=== PATIENT | female | born 1995 | race Caucasian/White ===

== ENCOUNTER 2024-01-26 14:50 | Outpatient (AMB) | payer BC, SELFPAY ==
--- NOTE | 2024-01-26 15:11 | MHC.PC.OV ---
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 Allergies sulfamethoxazole [From Bactrim] Allergy (Verified 11/27/21 09:03) Rash trimethoprim [From Bactrim] Allergy (Verified 11/27/21 09:03) Rash Medication List - Last Reconciled 01/26/24 by Dania Yen PA-C cetirizine (Zyrtec) 10 mg PO DAILY PRN chlorthalidone 25 mg PO DAILY cyanocobalamin (vitamin B-12) 1,000 mcg PO DAILY escitalopram oxalate 20 mg PO DAILY fluticasone furoate-vilanterol 100-25 mcg/dose (Breo Ellipta) 1 ea inhalation DAILY hydroxyzine HCl 25 mg PO BEDTIME PRN losartan 100 mg PO DAILY potassium chloride ER 20 mEq PO DAILY Tobacco use date assessed: 01/26/24 Dental Screening Did you have a dental visit in the last 12 months?: No Did you have a dental problem in the last 6 months where you did not have access to dental care?: No Was dental information given to patient?: Patient has dentist 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 from [facility]. CV: Blood pressure today in the office is 102/62. She remains on losartan 100 mg, chlorthalidone 25 mg and potassium. She is frustrated with her weight and states that the wegovy was the only thing that was helpful. She tolerated this well. Psych: well controlled on lexapro. No SI/HI. She states that she is frustrated with her weight and that is the main reason for her anxiety and depression. She used to follow with a therapist but found this unhelpful. She reports sleeping well. activities counselor: utd- follows with Kimberley. She is a little bit concerned because for the last 6 months her menses have been irregular. She states it feels like her. It is coming later in later. She follows it on the flow chasity and states that it will tell her to check test regularly despite her not currently being sexually active. She states that when she was living in [place] about 9 months ago she went to the ER there for abdominal pain and they told her that she had a large, right ovarian cyst on CT scan. She has not have a copy of this today. [facility] Medical History (Updated 01/26/24 @ 15:51 by Dania Yen PA-C) Right ovarian cyst Major depression in partial remission Generalized anxiety disorder with panic attacks Irregular menses Severe obesity (BMI 35.0-35.9 with comorbidity) Hypertension, benign Anxiety Depression Asthma GERD (gastroesophageal reflux disease) HTN (hypertension) Surgical History (Updated 01/26/24 @ 15:45 by Dania Yen PA-C) S/P VSD repair Family History (Updated 01/26/24 @ 15:18 by Damaris Andersen CMA) Mother Diabetes Father HTN (hypertension) Social History (Updated 01/26/24 @ 15:17 by Damaris Andersen CMA) Housing: House Patient Tobacco Use Status: Former Tobacco user Years Smoked: High school years e-Cigarette/Vaping Use: Never Used Second Hand Smoke Exposure: No Substance Use Type: Marijuana service: No Current occupational status: employed 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 1. Little interest or pleasure in doing things: several days 2. Feeling down, depressed, or hopeless: several days 3. Trouble falling or staying asleep, or sleeping too much: several days 4. Feeling tired or having little energy: several days 5. Poor appetite or overeating: more than half the days 6. Feeling bad about yourself - or that you are a failure or have let yourself or your family down: more than half the days 7. Trouble concentrating on things, such as reading the newspaper or watching television: not at all 8. Moving or speaking so slowly that other people could have noticed. Or the opposite - being so fidgety or restless that you have been moving around a lot more than usual: not at all 9. Thoughts that you would be better off or of hurting yourself in some way: not at all Total score: 8 Depression Screening Interpretation: Positive Depression Screening Follow-up: Existing condition, In treatment and Follow-up Visit Requested Depression Screening Done: Yes 46317 - PHQ-9 Billing: Yes Source: Developed by Drs. Bhavesh Sandhu, Andree Foreman, Sj Joshi and colleagues, with an educational leeanne from [employer]. Thrive Questionnaire Date Thrive assessed: 01/26/24 I am a: Patient What is your living situation today?: I have a steady place to live Within the past 12 months, did the food you bought not last and you didn't have the money to get more?: Never true Within the past 12 months, did you worry whether your food would run out before you got money to buy more?: Never true Do you have trouble paying for medicines?: No Do you have trouble getting transportation to medical appointments?: No Do you have trouble paying your heating and electricity bill?: No Do you have trouble taking care of your child, family member or friend?: No Do you have trouble with day-to-day activities such as bathing, preparing meals, shopping, managing finances, etc.?: No Are you currently unemployed and looking for a job?: No Are you interested in more education?: No Please select the resources that you would like help with: None Currently or been in a relationship where the following occur: no concerns reported THRIVE Score: 0 AUDIT C Alcohol Use Questionnaire (AUDIT-C) 1. How often do you have a drink containing alcohol?: 2-4 times a month 2. How many drinks containing alcohol do you have on a typical day when you are drinking?: 3 or 4 3. How often do you have six or more drinks on one occasion?: Never Total Score: 3 Score Reviewed/Action Taken: Yes POLY-7 AMB Questionnaire POLY-7 Date POLY - 7 assessed: 01/26/24 Feeling nervous, anxious, or on edge: 1 = Several days Not being able to stop or control worryin = Not at all Worrying too much about different things: 1 = Several days Trouble relaxin = Not at all Being so restless that it is hard to sit still: 0 = Not at all Becoming easily annoyed or irritable: 1 = Several days Feeling afraid as if something awful might happen: 0 = Not at all Total POLY-7 score (0-4 normal; 5-9 mild; 10-14 moderate; 15-21 severe): 3 Source: Developed by Drs. Bhavesh Sandhu, Andree Foreman, Sj Joshi and colleagues, with an educational leeanne from [employer]. POLY-7 Assessment Billing POLY-7 Assessment Tool: POLY-7 Assessment 52859 ACT Questionnaire In the past 4 weeks, how much of the time did your asthma keep you from getting as much done at work, school or at home?: None of the time During the past 4 weeks, how often have you had shortness of breath?: Not at all During the past 4 weeks, how often did your asthma symptoms wake you up at night or earlier than usual in the morning?: Not at all During the past 4 weeks, how often have you had to use your rescue inhaler or nebulizer medication?: Not at all How would you rate your asthma control during the past 4 weeks?: Completely controlled ACT Interpretation: Negative Score: 25 Physical exam (Primary Care) Vital Signs: Last Vital Signs Temp 98.6 F 01/26/24 15:19 Pulse 86 01/26/24 15:19 Resp 14 01/26/24 15:19 BP 102/62 01/26/24 15:19 Pulse Ox 98 01/26/24 15:19 Oxygen Delivery Method Room Air 01/26/24 15:19 BMI result Body Mass Index 35.4 BMI Assessment/Plan discussion: High (wegovy rx) BMI High, discussed plan: lifestyle, weight reduction, dietary, physical activity and other Tobacco/Smoking Status: Tobacco use Status Tobacco use date assessed 01/26/24 01/26/24 15:22 Patient Tobacco Use Status Former Tobacco user 01/26/24 15:22 e-Cigarette/Vaping Use Never Used 01/26/24 15:22 PHQ-9: PHQ-9 Score PHQ-9: Total score 8 01/26/24 15:22 Depression Screening Interpretation: Positive Depression Screening Follow-up: Existing condition, In treatment and Follow-up Visit Requested Thrive Assessment: Date of Thrive Assessment Date Thrive assessed 01/26/24 01/26/24 15:22 Currently or been in a relationship where the following occur: no concerns reported Const Orientation/consciousness: patient oriented x3 HENMT Ears: hearing grossly normal bilaterally Neck Thyroid: Thyroid normal Lymphatic: no lymphadenopathy noted Resp Auscultation: clear to auscultation bilaterally Cardio Rate: regular rate Rhythm: regular rhythm Heart sounds: S1 normal heart sound present and S2 normal heart sound present GI Inspection: Yes normal to inspection Palpation (GI): Soft to palpation and Other GI palpation findings present (nontender, no cva tenderness) Auscultation: normoactive bowel sounds Rectal Exam - Female: deferred Skin General skin exam: no rashes or lesions noted Neuro General: patient oriented x3, gait normal and no focal motor deficits Assessment and Plan Assessment & Plan (1) Hypertension, benign: Code(s): I10 - Essential (primary) hypertension Plan: She has been worked up for secondary causes of hypertension. We will continue chlorthalidone, losartan. Labs ordered today. (2) Severe obesity (BMI 35.0-35.9 with comorbidity): Code(s): E66.01 - Morbid (severe) obesity due to excess calories; Z68.35 - Body mass index [BMI] 35.0-35.9, adult Plan: Referral to weight management placed. We will restart will go away. Discussed risks and benefits and adverse effects of this medication again. I do believe that she will benefit from this as she previously lost 18 lb. (3) Irregular menses: Code(s): N92.6 - Irregular menstruation, unspecified Plan: Advised to follow up with her continuing education director. Labs ordered today. Pelvic ultrasound ordered given the finding on CT from her [place] hospitalization of the right ovarian cyst that was commented to be large. I do not have the record of this. (4) Right ovarian cyst: Code(s): N83.201 - Unspecified ovarian cyst, right side (5) Generalized anxiety disorder with panic attacks: Code(s): F41.1 - Generalized anxiety disorder; F41.0 - Panic disorder [episodic paroxysmal anxiety] Plan: Currently well-controlled with Lexapro. Does not want to follow with a therapist. States that most of her anxiety and depression comes from her weight. (6) Major depression in partial remission: Code(s): F32.4 - Major depressive disorder, single episode, in partial remission Qualifiers: Major depression recurrence: recurrent Qualified Code(s): F33.41 - Major depressive disorder, recurrent, in partial remission Plan: See above. Plan Labs ordered. Follow up in 3 months. Sooner if needed. Patient understands and agrees with the plan Orders: Orders Complete Blood Count Auto Diff Today E66.01 - Morbid (severe) obesity due to excess calories, F32.4 - Major depressive disorder, single episode, in partial remission, F41.0 - Panic disorder [episodic paroxysmal anxiety], F41.1 - Generalized anxiety disorder, I10 - Essential (primary) hypertension, N92.6 - Irregular menstruation, unspecified, Z68.35 - Body mass index [BMI] 35.0-35.9, adult TSH reflex Free T4 Today E66.01 - Morbid (severe) obesity due to excess calories, F32.4 - Major depressive disorder, single episode, in partial remission, F41.0 - Panic disorder [episodic paroxysmal anxiety], F41.1 - Generalized anxiety disorder, I10 - Essential (primary) hypertension, N92.6 - Irregular menstruation, unspecified, Z68.35 - Body mass index [BMI] 35.0-35.9, adult Lipid Panel Today E66.01 - Morbid (severe) obesity due to excess calories, F32.4 - Major depressive disorder, single episode, in partial remission, F41.0 - Panic disorder [episodic paroxysmal anxiety], F41.1 - Generalized anxiety disorder, I10 - Essential (primary) hypertension, N92.6 - Irregular menstruation, unspecified, Z68.35 - Body mass index [BMI] 35.0-35.9, adult US pelvic and transvaginal Today N83.201 - Unspecified ovarian cyst, right side Comprehensive [place]. Panel Fast Today E66.01 - Morbid (severe) obesity due to excess calories, F32.4 - Major depressive disorder, single episode, in partial remission, F41.0 - Panic disorder [episodic paroxysmal anxiety], F41.1 - Generalized anxiety disorder, I10 - Essential (primary) hypertension, N92.6 - Irregular menstruation, unspecified, Z68.35 - Body mass index [BMI] 35.0-35.9, adult Hemoglobin A1c Today E66.01 - Morbid (severe) obesity due to excess calories, I10 - Essential (primary) hypertension, N92.6 - Irregular menstruation, unspecified, Z68.35 - Body mass index [BMI] 35.0-35.9, adult Referrals Medical Weight Management Referral E66.01 - Morbid (severe) obesity due to excess calories, I10 - Essential (primary) hypertension, N92.6 - Irregular menstruation, unspecified, Z68.35 - Body mass index [BMI] 35.0-35.9, adult Medications: New semaglutide (weight loss) ([place]) administer weeks 1 through 4 of therapy 0.25 mg (0.5 mL) subcut QWEEK 2 mL 1RF chlorthalidone 25 mg PO DAILY 90 tabs 3RF Coding Level of Care Code Est Pt Level 4 (88077) Complex EM visit Add On G2211 Diagnoses Hypertension, benign I10 Severe obesity (BMI 35.0-35.9 with comorbidity) E66.01; Z68.35 Irregular menses N92.6 Right ovarian cyst N83.201 Generalized anxiety disorder with panic attacks F41.1; F41.0 Recurrent major depressive disorder, in partial remission F33.41 Major depression recurrence: recurrent Additional Codes POLY-7 Assessment Billing - POLY-7 Assessment Tool: POLY-7 Assessment 60487 ([id number])
[2024-01-26 15:19] VITALS: BP 102/62; PULSE 86; RESP 14; TEMP 37; O2SAT 98; BMI 35.4
== END 2024-01-26 15:41 | disposition home or self-care (01) ==
PROVIDERS: PCP Physician Assistant; Visit Provider Physician Assistant
DX: I10 Essential (primary) hypertension (principal); E66.01 Morbid (severe) obesity due to excess calories; F33.41 Major depressive disorder, recurrent, in partial remission; Z68.35 Body mass index [BMI] 35.0-35.9, adult; N92.6 Irregular menstruation, unspecified; N83.201 Unspecified ovarian cyst, right side; F41.1 Generalized anxiety disorder; F41.0 Panic disorder [episodic paroxysmal anxiety]
CPT/HCPCS: 99214; G2211

== ENCOUNTER 2024-02-02 16:04 | Outpatient (REF) | payer BC, SELFPAY ==
--- NOTE | ~2024-02-02 | US_ITS ---
EXAMINATION: US PELVIS CLINICAL INFORMATION: Right ovarian cyst. Last menstrual period a month ago. COMPARISON: None available. TECHNIQUE: Ultrasound of the pelvis is performed using both transabdominal and transvaginal transducers along with Doppler. Limited visualization due to bowel gas and body habitus. Transvaginal imaging is performed due to inadequate visualization transabdominally. FINDINGS: The uterus is anteverted and measures 7.9 x 2.5 x 4.2 cm. 0.5 x 0.4 x 0.5 cm fibroid. Endometrial thickness is 9 mm. Small amount of fluid within the cervix. No significant free fluid. Bilateral ovaries are unremarkable. Right ovary measures 2.5 x 1.4 x 2.1 cm, volume 3.8 mL. Left ovary measures 3.0 x 2.3 x 1.8 cm, volume 6.5 mL. US/US pelvic and transvaginal IMPRESSION: 1. Endometrium appears echogenic with thickness of 9 mm. 2. Small 0.5 cm uterine mass characteristic of a fibroid. 3. Unremarkable bilateral ovaries. Limited visualization due to bowel gas and body habitus.
== END 2024-02-02 16:05 | disposition home or self-care (01) ==
LOC: HO.US 16:04
PROVIDERS: PCP Physician Assistant; Visit Provider Physician Assistant
DX: N83.201 Unspecified ovarian cyst, right side (principal)
CPT/HCPCS: 76830; 76856

== ENCOUNTER 2024-04-27 10:53 | Outpatient (AMB) | payer BC, SELFPAY ==
--- NOTE | 2024-04-27 11:08 | MHC.PC.OV ---
Vital Signs 04/27/24 11:09 Height 5 ft Weight 163 lb 6 oz BMI 31.9 BP 102/62 Blood Pressure Location Lt brachial Position Sitting Respiration 14 Pulse 75 Pulse Source Pulse Oximeter Pulse Oximetry (%) 98 Oxygen Delivery Method Room Air Intake Visit Reasons: F/U Intake Note: Follow up Is last menstrual period known: No Allergies sulfamethoxazole [From Bactrim] Allergy (Verified 04/27/24 11:09) Rash trimethoprim [From Bactrim] Allergy (Verified 04/27/24 11:09) Rash Medication List - Last Reconciled 04/27/24 by Dania Yen PA-C cetirizine (Zyrtec) 10 mg PO DAILY PRN chlorthalidone 25 mg PO DAILY cyanocobalamin (vitamin B-12) 1,000 mcg PO DAILY escitalopram oxalate 20 mg PO DAILY fluticasone propion-salmeterol 250-50 mcg/dose (Wixela Inhub) 1 inh inhalation BID 30 days hydroxyzine HCl 25 mg PO BEDTIME PRN losartan 50 mg PO DAILY ondansetron HCl 4 mg PO Q8H PRN potassium chloride ER 20 mEq PO DAILY semaglutide (weight loss) (Wegovy) 2.4 mg (0.75 mL) subcut QWEEK Tobacco use date assessed: 01/26/24 HPI F/U HPI Details Patient is a 29-year-old female with a significant past medical history of anxiety, depression, hypertension, asthma and obesity presenting today for a followup. CV: Blood pressure today in the office is 102/62. She remains on losartan 100 mg, chlorthalidone 25 mg and potassium. General: She is frustrated with her weight and states that the wegovy was the only thing that was helpful. She tolerated this well. She is down 20 lbs with this. Psych: well controlled on lexapro. No SI/HI. She states that she is frustrated with her weight and that is the main reason for her anxiety and depression. She used to follow with a therapist but found this unhelpful. She reports sleeping well. 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 [facility] Medical History (Updated 03/08/24 @ 16:10 by Dania Yen PA-C) Right ovarian cyst Major depression in partial remission Generalized anxiety disorder with panic attacks Irregular menses Severe obesity (BMI 35.0-35.9 with comorbidity) Hypertension, benign Anxiety Depression Asthma GERD (gastroesophageal reflux disease) HTN (hypertension) Surgical History (Updated 01/26/24 @ 15:45 by Dania Yen PA-C) S/P VSD repair Family History (Updated 01/26/24 @ 15:18 by Damaris Andersen CMA) Mother Diabetes Father HTN (hypertension) Social History (Updated 01/26/24 @ 15:17 by Damaris Andersen CMA) Housing: House Patient Tobacco Use Status: Former Tobacco user Years Smoked: High school years e-Cigarette/Vaping Use: Never Used Second Hand Smoke Exposure: No Substance Use Type: Marijuana service: No Current occupational status: employed 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 Bhavesh Sandhu, Andree Foreman, Sj Joshi and colleagues, with an educational leeanne from [employer]. Physical exam (Primary Care) Vital Signs: Last Vital Signs Pulse 75 04/27/24 11:09 Resp 14 04/27/24 11:09 BP 102/62 04/27/24 11:09 Pulse Ox 98 04/27/24 11:09 Oxygen Delivery Method Room Air 04/27/24 11:09 BMI result Body Mass Index 31.9 BMI Assessment/Plan discussion: High (on wegovy) BMI High, discussed plan: lifestyle, weight reduction, dietary and physical activity Tobacco/Smoking Status: Tobacco use Status Tobacco use date assessed 01/26/24 04/27/24 11:11 Patient Tobacco Use Status Former Tobacco user 04/27/24 11:11 e-Cigarette/Vaping Use Never Used 04/27/24 11:11 Thrive Assessment: Date of Thrive Assessment Date Thrive assessed 01/26/24 04/27/24 11:11 Const Orientation/consciousness: patient oriented x3 HENMT Ears: hearing grossly normal bilaterally Neck Thyroid: Thyroid normal Lymphatic: no lymphadenopathy noted Resp Auscultation: clear to auscultation bilaterally Cardio Rate: regular rate Rhythm: regular rhythm Heart sounds: S1 normal heart sound present and S2 normal heart sound present Skin General skin exam: no rashes or lesions noted Neuro General: patient oriented x3, gait normal and no focal motor deficits Assessment and Plan Assessment & Plan (1) Hypertension, benign: Code(s): I10 - Essential (primary) hypertension Plan: will reduce losartan to 50 mg. (2) Major depression in partial remission: Code(s): F32.4 - Major depressive disorder, single episode, in partial remission Qualifiers: Major depression recurrence: recurrent Qualified Code(s): F33.41 - Major depressive disorder, recurrent, in partial remission Plan: continue lexapro (3) Severe obesity (BMI 35.0-35.9 with comorbidity): Code(s): E66.01 - Morbid (severe) obesity due to excess calories; Z68.35 - Body mass index [BMI] 35.0-35.9, adult Plan: tolerating wegovy and down 20 lbs. continue current plan get labs done today Medications: New losartan 50 mg PO DAILY 90 tabs 3RF Coding Level of Care Code Est Pt Level 4 (18197) Complex EM visit Add On G2211 Diagnoses Hypertension, benign I10 Recurrent major depressive disorder, in partial remission F33.41 Major depression recurrence: recurrent Severe obesity (BMI 35.0-35.9 with comorbidity) E66.01; Z68.35
[2024-04-27 11:09] VITALS: BP 102/62; PULSE 75; RESP 14; O2SAT 98; BMI 31.9
== END 2024-04-27 11:35 | disposition home or self-care (01) ==
PROVIDERS: PCP Physician Assistant; Visit Provider Physician Assistant
DX: I10 Essential (primary) hypertension (principal); F33.41 Major depressive disorder, recurrent, in partial remission; E66.01 Morbid (severe) obesity due to excess calories; Z68.35 Body mass index [BMI] 35.0-35.9, adult
CPT/HCPCS: 99214

== ENCOUNTER 2024-04-27 11:42 | Outpatient (REF) | payer BC, SELFPAY ==
[2024-04-27 14:20] LABS: MANUAL DIFF FLAG NO
[2024-04-27 14:24] LABS: Basophils Absolute Auto 0.1 X10*3/uL (0.0-0.2); Basophils Percent Auto 0.6 % (0-2); Eosinophils Absolute Auto 0.2 X10*3/uL (0.0-0.4); Eosinophils Percent Auto 2.2 % (0-4); Hematocrit 39.6 % (37.0-47.0); Hemoglobin 13.5 g/dl (12.0-16.0); Imm Gran Abs Auto 0.03 X10*3/uL (0.00-0.03); Imm Gran Pct Auto 0.3 % (0.0-0.4); Lymphocytes Percent Auto 29.2 % (20-40); Mean Corpuscular HGB Conc 34.1 g/dl (31.0-35.0); Mean Corpuscular Hemoglobin 29.7 pg (27.0-33.0); Mean Corpuscular Volume 87.2 fL (80.0-98.0); Mean Platelet Volume 10.6 fL (9.4-12.3); Monocytes Absolute Auto 0.8 X10*3/uL (0.1-1.2); Monocytes Percent Auto 7.2 % (2-11); Neutrophils Absolute Auto 6.3 x10*3/uL (2.0-8.3); Neutrophils Percent Auto 60.5 % (45-73); Platelet Count 437 X10*3/uL (160-400); Red Blood Count 4.54 X10*6/uL (4.20-5.50); Red Cell Distribution Width 13.3 % (11.0-16.0); White Blood Count 10.4 X10*3/uL (4.8-10.8)
[2024-04-27 14:38] LABS: Estimated Average Glucose 100 mg/dL; Hemoglobin A1c % 5.1 % (<6.0)
[2024-04-27 14:50] LABS: Alanine Aminotransferase 13 U/L (0-31); Albumin Level 4.5 g/dL (3.5-5.0); Alkaline Phosphatase 40 U/L (39-117); Anion Gap 13 (12-20); Aspartate Amino Transferase 14 U/L (5-31); Bilirubin Total 0.5 mg/dL (0.0-1.0); Blood Urea Nitrogen 16 mg/dL (9-16); Carbon Dioxide 24 mmol/L (22-29); Chloride 104 mmol/L (96-108); Cholesterol 170 mg/dL (<200); Estimated Glomerular Filt Rate > 60; Glucose Fasting 85 mg/dL (60-99); HDL Cholesterol 36 mg/dL (>40); LDL Cholesterol Calculated 103 mg/dL (<100); Potassium 3.5 mmol/L (3.3-5.1); Sodium 137 mmol/L (135-145); Total Protein 7.3 g/dL (6.5-8.0); Triglycerides 157 mg/dL (<150)
== END 2024-04-27 11:43 | disposition home or self-care (01) ==
LOC: HO.WFDLDS 11:42
PROVIDERS: Visit Provider Physician Assistant
DX: I10 Essential (primary) hypertension (principal); E66.01 Morbid (severe) obesity due to excess calories; Z68.35 Body mass index [BMI] 35.0-35.9, adult; N92.6 Irregular menstruation, unspecified; F41.1 Generalized anxiety disorder; F41.0 Panic disorder [episodic paroxysmal anxiety]; F32.4 Major depressive disorder, single episode, in partial remission; Z13.1 Encounter for screening for diabetes mellitus
CPT/HCPCS: 36415; 80053; 80061; 83036; 84443; 85025

== ENCOUNTER 2024-11-01 15:24 | Outpatient (AMB) | payer BC, SELFPAY ==
--- OUTSIDE RECORDS SUMMARY | 2024-11-01 15:26 | XMS_ITS | Data Portability ---
Author Organization [place] - [facility],, BRITTANIE ROSE MD Address [address] [address] Assessment No assessment recorded. Plan of Treatment Reminders Order Date Submit Date Provider Last Modified By Organization Details Last Modified Time Details Appointments None recorded. Lab pap test, thinprep, cervical 2019 020 [facility], Cytopathology Service, [address] [place] [address], [address], 0 07:49:17 chlamydia sp, culture, unspecifi ed specimen 2019 020 [facility], Cytopathology [facility], [address] [place] [address], [address], 0 07:49:17 NG DNA, PCR, genital 2019 020 [facility], Cytopathology Service, [address] [place] [address], [address], 0 07:49:18 pap test, thinprep, cervical 2018 019 [facility], Cytopathology Service, [address] [place] [address], [address], 9 16:01:42 chlamydia sp, culture, unspecifi ed specimen 2018 019 [facility], Cytopathology Service, [address] [place] [address], [address], 9 16:02:04 NG DNA, PCR, genital 2018 019 [facility], [facility] Service, [address] [place], [address], 9 16:02:21 urinalysi s, dipstick 2017 018 [facility] In-Office Order, Internal Use Only DO Not Attach Compendium DO Not Attach Compendium, Do Not Delete/merge, 149[address] 8 07:44:39 culture, urine 2017 018 [place], [address] [place], [address], 8 13:43:41 unlisted lab - chlamydia / GC DNA W rflx 2017 018 [facility] [employer], [address] [place] [address], [address], 8 07:44:40 herpes simplex, culture, unspecifi ed specimen - Source of culture= Clitoris 2017 018 [place], [address] [place], [address], 8 11:41:45 pap test, thinprep, cervical 2017 018 [facility], Cytopathology Service, [address] [place], [address], 8 14:06:32 chlamydia sp, culture, unspecifi ed specimen 2017 018 [facility], Cytopathology Service, [address] [place], [address], 8 07:39:54 NG DNA, PCR, genital 2017 018 [facility], Cytopathology Service, [address] [place], [address], 8 07:39:54 Referral None recorded. Procedures None recorded. Surgeries None recorded. Imaging None recorded. Medication Orders Linda 0.35 mg tablet 2017 018 [id number], [address] [facility], [place], [address], 9 15:18:21 Patient TargetsNo targets recorded. Patient Instructions Encounter Date Encounter Id Patient Instructions Last Modified By Organization Details Last Modified Time 02/04/2018 [id number] She is here for annual exam, is doing well. She was switched to a different antihypertensive recently, her BP today is 150/85. She is taking the Linda OCP due to her hypertension. She has a history of LSIL, had paps in 2014 ASCUS, 2016 LSIL, 2017 negative, and colpo LSIL in 03/2016. She has a known cardiac murmur, she had a breast reduction in September and so she had to see a director talent acquisition pre op, They said the murmur was fine. She has had the same partner for 6 years, is considering marriage. We reviewed the interaction of the OCP with antibiotics. We discussed the need to use a condom during antibiotic use and also for a minimum of three weeks following the use of antibiotics. We discused interactions with some herbal and OTC meds, such as [facility] Possible side effects, and the stated risk of one in 10,000 to develop a blood clot/ DVT/PE were also discussed. Safe sex was stressed. All questions answered, rx to be called in to pharmacy. She appears to be doing well. She is advised to get 1500 mg of calcium daily into her diet and supplements combined. We discussed the benefits of adequate vitamin D supplementation to at least 400 units daily, daily aerobic exercise of 30 minutes, and stress reduction. Monthly self breast exam was taught, and stressed, and is advised to call if she discovers any new mass in the breast. Seat belt use for herself and passengers advised. The significant health benefits of becoming and remainig fit, with an optimal BMI, were also discussed. We discussed the potential reduction in chronic discomfort, the diminished risks of hypertension, diabetes, and heart disease with the proper weight management, and improved mobility as she ages. Strategies to reach and maintain her target weight wer discussed in detail, all questions answered. aleksanrda Not available 02/04/2018 09:08:54 04/08/2018 [id number] urinary tract infection in women information aleksandra Not available 04/08/2018 15:11:46 She is here priscilla use she got back together with her old partner 2 days ago and the next morning, yesterday, she noted a very severe pain at the top of her vulva. She notes that she also has some dysuria since then. Today the pain is moderately improved and definitely not worse. They did have oral sex. On exam, the surface of the clitoris is abraded and red, has a small scab on it. the damage does not extend to the cabrera or lateral tissues, just the glans itself. More than 50% of the surface has been denuded. There are no lesions or blisters otherwise. No adjacent erythema or induration. She appears to have had a traumatic surface injury of the clitoral glans, now healing. Ways ot keep it from getting infected discussed. Call if any problem. this should be self limiting. She is advised to let him know to be more careful and asware of hte sensitive nature fo the tisuse. [facility] HSV culture, though doubt. [facility] genprobe of cervix for new partner. U/A has trace leuk, check culture to rule out UTI. All questions answered. 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 She has not bee nsexually active in the 4 weeks. She stopped her Linda a year ago, they were not using control and she didn't get . She is not sure if she has infertility or not. BP is 148/102 today. She went to urgent care for pink eye last Wednesday, her diastolic was 115. She used to take amlodipine 10 mg tabs until March, but she stopped it because it made her foot numb. Note from 2018: She is here for annual exam, is doing well. She was switched to a different antihypertensive recently, her BP today is 150/85. She is taking the Linda OCP due to her hypertension. She has a history of LSIL, had paps in 2014 ASCUS, 2016 LSIL, 2017 negative, and colpo LSIL in 03/2016. She has a known cardiac murmur, she had a breast reduction in September and so she had to see a director talent acquisition pre op, They said the murmur was fine. She has had the same partner for 6 years, is considering marriage. She has mild hidradenitis of inner thighs, ways to improve that discussed. She is giong to try to lose weight, cut back on salt, improve her BP, and will see her PCP about a new antihypertensive. She will call after hr BP is improved, to get a refill on Linda, does not believe she will be sexually active for a while. We discussed that she had chalamydia in 2012, but that does not guarantee tubal infertility, and she needs to use adequate control until she desires fertility. She appears to be doing well. She is advised to get 1500 mg of calcium daily into her diet and supplements combined. We discussed the benefits of adequate vitamin D supplementation to at least 400 units daily, daily aerobic exercise of 30 minutes, and stress reduction. Monthly self breast exam was taught, and stressed, and is advised to call if she discovers any new mass in the breast. Seat belt use for herself and passengers advised. The significant health benefits of becoming and remainig fit, with an optimal BMI, were also discussed. We discussed the potential reduction in chronic discomfort, the diminished risks of hypertension, diabetes, and heart disease with the proper weight management, and improved mobility as she ages. Strategies to reach and maintain her target weight wer discussed in detail, all questions answered. Not available 06/23/2019 15:58:50 06/27/2020 [id number] learning about healthy weight Not available 06/27/2020 15:42:30 She is here for annual exam, had stopped her antihypertensive last year. She was started on an antihypertensive by her PCP a few months ago, she notes, and her BP was higher than it is today, at that time. She as not been back there to recheck, though. BP 157/95 today. Menses are regular. 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 She has not had another partner since then. Note from 2019: She is here for annual exam, she broke up with her usp boyfriend a month ago, and he already has a new partner. She has not bee nsexually active in the 4 weeks. She stopped her Linda a year ago, they were not using control and she didn't get . She is not sure if she has infertility or not. BP is 148/102 today. She went to urgent care for pink eye last Wednesday, her diastolic was 115. She used to take amlodipine 10 mg tabs until March, but she stopped it because it made her foot numb. She appears to be doing well. Valeria is advised to contact her PCP after taking two weeks of home BP tests, she has a BP cuff at home. Call if she wants to restart progestin only control. She is advised to get 1500 mg of calcium daily into her diet and supplements combined. There is a health benefit with adequate vitamin D supplementation to at least 400 units daily, daily aerobic exercise of 30 minutes, and stress reduction. Monthly self breast exam was taught, and stressed, and is advised to call if she discovers any new mass in the breast. Not available 06/27/2020 15:43:30 Reason for Referral None Reported. Results Created Date Observation Date Name Description Value Unit Range Abnormal Flag Note LastModifiedBy Organization Detail LastModifiedTime 02/05/20 18 02/04/2018 gener al5ca se [id number] RESUL TS OF GEN-P ROBE APTIM A COMBO 2 ASSAY Chlam ydia: NEGYEN serna e: NEGAT DEWEY GUERRERO M.D., Patho logis t (Case elect tabitha orellana marie [place] 02 09 2018) [facility] INFOR MATIO N: Z12.4 , Z01.4 19 SOURC E: ThinP rep Pap for CT/GC Gross Descr iptio n: ThinP rep Vial Recei cynthia. Physi AMY Mixon N /#[phone] [id number] [phone] Not Available [facility], Cytopathology Service [address] [place], [address], 02/09/2018 09:36:35 02/05/20 18 02/04/2018 pap, LB [id number] ThinP rep Pap, Image d: NEGAT DEWEY FOR SQUAM OUS INTRA EPITH ELIAL LESIO N AND MALIG JC . Ronny Hunt hers, CT( CP) (Case elect tabitha bejaranolilian marie d 02 09 2018) ADEQU ACY: Satis facto ry. Endoc ervic al/tr ansfo rmati on zone compo nent prese nt. SOURC E: ThinP rep Pap HPV IF ASCUS , Cervi mary kate, Image d: CLINI [facility] INFOR MATIO N: HPV If Diagn osis of ASCUS . Z12.4 , Z01.4 19 Not Available [facility], Cytopathology Service [address] [place], [address], 02/09/2018 14:06:32 04/08/20 18 04/08/2018 cultu re, urine comments [facility] [address] [facility] [address] [phone] SOUR E: URINE ,MEHRAN N CATCH ; Not Available [facility] [address] [place], [address], 04/09/2018 13:43:41 04/08/20 18 04/09/2018 cultu re, urine urine culture [facility] [address] [place] [address] [phone] COLLE CTION TIME: 2017 2:30: 00 PM -04:0 0 URINE CULTU RE No growt h F Not Available [facility] [address] [place], [address], 04/09/2018 13:43:41 04/08/20 18 04/08/2018 CT, DNA, qual, PCR, unspe cifie d speci men comments [facility] [address] [facility] [address] [phone] [facility] [address] [place] [address], [address], 04/10/2018 10:07:17 04/08/20 18 04/08/2018 CT, DNA, qual, PCR, unspe cifie d speci men chlamydia DNA swab NEGATI VE negati ve Not Available [facility] [address] [place] [address], [address], 04/10/2018 10:07:17 04/08/20 18 04/08/2018 NG, DNA, qual, PCR, unspe cifie d speci men comments [facility] [address] [facility] [address] [phone] [facility] [address] [place] [address], [address], 04/10/2018 10:07:18 04/08/20 18 04/08/2018 NG, DNA, qual, PCR, unspe cifie d speci men GC DNA swab NEGATI VE negati ve Not Available [facility] [address] [place] [address], [address], 04/10/2018 10:07:18 04/08/20 18 04/08/2018 herpe s simpl ex, cultu re, unspe cifie d speci men herpes culture source Clitor is Not Available [facility] [address] [place] [address], [address], 04/16/2018 11:41:42 04/08/20 18 04/08/2018 herpe s simpl ex, cultu re, unspe cifie d speci men herpes culture interpretati on No Growth no growth This metho d utili zes stand arley tube cultu re metho ds with monoc lonal antib allegra stain ing of CPE-p ositi ve cells . This proce dure can detec t and diffe renti ate herpe s type 1 and herpe s type 2. Other virus es prese nt in the speci men will not be ident ified . A negat dewey resul t does not precl ude viral infec tion. The viabi lity of viral agent s can be degra ded if speci mens are impro perly colle cted or store d. The numbe r of viabl e virus parti cles may be below the detec tion thres hold. Test perfo rmed at [facility] , [address], [place] [address] [phone] Dajuan Ochoa MD - Medic al Direc tor Not Available [facility] [address] [facility], [place], [address], 04/16/2018 11:41:42 04/08/20 18 04/08/2018 urina lysis , dipst ick GLU Negati ve Not Available In-Office Order Internal Use Only DO Not Attach Compendium DO Not Attach Compendium, Do Not Delete/merge, 04/08/2018 14:37:36 04/08/20 18 04/08/2018 urina lysis , dipst ick MARGARITA Negati ve Not Available In-Office Order Internal Use Only DO Not Attach Compendium DO Not Attach Compendium, Do Not Delete/merge, 04/08/2018 14:37:36 04/08/20 18 04/08/2018 urina lysis , dipst ick KET Negati ve Not Available In-Office Order Internal Use Only DO Not Attach Compendium DO Not Attach Compendium, Do Not Delete/merge, 04/08/2018 14:37:36 04/08/20 18 04/08/2018 urina lysis , dipst ick SG 1.020 Not Available In-Office Order Internal Use Only DO Not Attach Compendium DO Not Attach Compendium, Do Not Delete/merge, 04/08/2018 14:37:36 04/08/20 18 04/08/2018 urina lysis , dipst ick BLO Negati ve Not Available In-Office Order Internal Use Only DO Not Attach Compendium DO Not Attach Compendium, Do Not Delete/merge, 04/08/2018 14:37:36 04/08/20 18 04/08/2018 urina lysis , dipst ick pH 6.0 Not Available In-Office Order Internal Use Only DO Not Attach Compendium DO Not Attach Compendium, Do Not Delete/merge, 04/08/2018 14:37:36 04/08/20 18 04/08/2018 urina lysis , dipst ick PRO Negati ve Not Available In-Office Order Internal Use Only DO Not Attach Compendium DO Not Attach Compendium, Do Not Delete/merge, 04/08/2018 14:37:36 04/08/20 18 04/08/2018 urina lysis , dipst ick URO 0.2 E.U. / dl Not Available In-Office Order Internal Use Only DO Not Attach Compendium DO Not Attach Compendium, Do Not Delete/merge, 04/08/2018 14:37:36 04/08/20 18 04/08/2018 urina lysis , dipst ick NIT negati ve Not Available In-Office Order Internal Use Only DO Not Attach Compendium DO Not Attach Compendium, Do Not Delete/merge, 04/08/2018 14:37:36 04/08/20 18 04/08/2018 urina lysis , dipst ick AYO Trace Not Available In-Office Order Internal Use Only DO Not Attach Compendium DO Not Attach Compendium, Do Not Delete/merge, 04/08/2018 14:37:36 06/23/20 19 06/23/2019 gener al5ca se [id number] RESUL TS OF APTIM A COMBO 2 ASSAY : Chlam ydia: NEGAT DEWEY N. yvonne serna e: NEGAT DEWEY Compl eted on 06-27 JAMES GUERRERO M.D. , Patho logis t (Case elect tabitha carleelilian marie d 06 27 2019) [facility] INFOR MATIO N: Z12.4 SOURC E: ThinP rep Pap for CT/GC Gross Descr iptio n: ThinP rep Vial Recei cynthia. Physi allison NICOLE LLSELMA/ [phone] Not Available [facility], Cytopathology Service [address] [place] [address], [place], [address], 06/27/2019 17:02:27 06/23/20 19 06/23/2019 pap, LB [id number] ThinP rep Pap, Image d: NEGAT DEWEY FOR SQUAM OUS INTRA EPITH ELIAL LESIO N AND MALIG JC . Nahed Zhu , CT( CP) (Case elect tabitha orellana marie d 06 30 2019) ADEQU ACY: Satis facto ry Endoc ervic al/tr ansfo rmati on zone compo nent prese nt. SOURC E: ThinP rep Pap HPV IF ASCUS , Cervi mary kate, Image d CL[facility]I [facility] INFOR MATIO N: HPV If Diagn osis of ASCUS . Z12.4 , LPS = NEG Not Available [facility], Cytopathology Service [address] [place], [address], 06/30/2019 13:31:34 06/27/20 20 06/27/2020 gener al5ca se [id number] RESUL TS OF APTIM A COMBO 2 ASSAY : Chlam ydia: NEGAT DEWEY N. gonor rhoea e: NEGAT DEWEY Compl eted on 06-28 JAMES GUERRERO M.D. , Patho logis t (Case elect tabitha orellana marie d 06 28 2020) CL[facility] INFOR MATIO N: Lps 06/23 neg, z12.4 , z01.4 19, z11.3 SOURC E: ThinP rep Pap for CT/GC Gross Descr iptio n: ThinP rep Vial Recei cynthia. Physi kaileens AMY SCOTT/ [phone] Not Available [facility], Cytopathology Service [address] [place], [address], 06/28/2020 16:46:10 06/27/20 20 06/27/2020 pap, LB [id number] ThinP rep Pap, Image d: NEGAT DEWEY FOR SQUAM OUS INTRA EPITH ELIAL LESIO N AND MALIG JC . React dewey cellu lilly lee. Shauna Rivas a , CT( CP) (Case Scree nhan 07 01 2020) Nenita Sarkar M.D. , Patho logis t (Case elect tabitha orellana marie d 07 02 2020) ADEQU ACY: Satis facto ry Endoc ervic al/tr ansfo rmati on zone compo nent prese nt. SOURC E: ThinP rep Pap HPV IF ASCUS , Cervi mary kate, Image d CLINI [facility] INFOR MATIO N: HPV If Diagn osis of ASCUS . lps 06/23 neg, z12.4 , z11.3 , z01.4 19 Not Available [facility], Cytopathology Service [address] [place], [address], 07/03/2020 15:21:16 Result Notes None recorded. Problems Name Problem SNOMED Code Status Onset Date Resolution Date Notes Provider Name and Address Organization Details Recorded Time Cytologic finding 981211974 Active She has a history of LSIL, had paps in 2014 ASCUS, 2016 LSIL, 2016 negative, and colpo LSIL in 03/2016. Brittanie Rose MD [address], [place], [address], [place] [facility], 8 09:09:10 Dysmenorrh ea 425314543 Active Brittanie Rose MD [address], [place], [address], [place] [facility], 6 15:32:53 Chlamydial infection 601438588 Active 2012 She had a positive chlmaydia culture in 07/26, treated and repeat tests negative. Brittanie Rose MD [address], [place], [address], [place] [facility], 6 15:12:38 Hypertensi ve disorder 06215815 Active Brittanie Rose MD [address], [place], [address], [place] [facility], 6 15:32:53 History of dysplasia of cervix 501513847 Active 2017 She has a history of LSIL, had paps in 2014 ASCUS, 2016 LSIL, 2017 negative, and colpo LSIL in 03/2016. Brittanie Rose MD [address], [place], [address], [place] [facility], 8 09:09:41 Specialize d medical examinatio n Active of breasts and vulva, most notably Brittanie Rose MD [address], [place], [address], [place] [facility], 6 15:12:38 Menorrhagi a 748186158 Active Brittanie Rose MD [address], [place], [address], [place] [facility], 6 15:12:38 Generalize d vitiligo 136918442 Active Brittanie Rose MD [address], [place], [address], [place] [facility], 6 15:12:38 Cervical intraepith elial neoplasia grade 1 191486626 Active 2014 She has a history of LSIL, had paps in 2014 ASCUS, 2016 LSIL, 2017 negative, and colpo LSIL in 03/2016. Brittanie Rose MD [address], [place], [address], [place] [facility], 8 09:09:22 Problem Notes None recorded. Procedures Surgical History Date Name Laterality Status Provider Name and Address Organization Details Recorded Time 8 Other completed Mikayla Mcintyre [place] [facility], 02/04/2018 08:39:08 6 Colposcopy completed Brittanie Rose MD [address], [place], [address], [place] [facility], 03/13/2016 09:46:43 5 Colposcopy completed Brittanie Rose MD [address], [place], [address], [place] [facility], 02/11/2015 09:45:30 5 Colposcopy completed Mikayla Mcintyre [place] Lombardi in [facility], 03/13/2016 08:36:12 5 Colposcopy completed Brittanie Rose MD [address], [place], [address], [place] [facility], 10/08/2014 13:55:16 8 Unlisted px cardiac surgery completed Brittanie Rose MD [address], [place], [address], [place] [facility], 08/02/2013 11:40:52 Imaging Results None recorded. Procedure Notes None recorded. Medical Equipment None Reported. Allergies Allergen ID Allergen Name Allergen Category Reaction Reaction Severity Criticality Documentation Date Start Date Code Code System Note Provider Name and Address Organization Details Recorded Time 41307 Bactrim medicatio n rash Not available Not available 08/02/2013 46224 9 RxNorm no idea was young ASHISH Dmaian in [facility], 3 11:07:59 75261 hydrochlo rothiazid e medicatio n rash Not available Not available 05/08/2015 5487 RxNorm ASHISH Damian in [facility], 5 10:07:25 47765 Substance with sulfonami de structure and antibacte rial mechanism of action (substanc e) medicatio n rash Not available Not available 08/02/2015 74245 8003 SNOMED ASHISH Damian in [facility], 5 08:08:44 Medications Name Sig Start Date Stop Date Status Note LastModified by Organization Details LastModified Time amoxicillin 500 mg capsule 04/08 completed Not Available Not Available Not Available prednisone 10 mg tablet TAKE 40 MG BY MOUTH DAILY X 5 DAYS, 30 MG X 5 DAYS, 20 MG DAILY X 5 DAYS, THEN 10 MG DAILY X 5 DAYS 06/16 completed Not Available Not Available Not Available albuterol sulfate 2.5 mg/3 mL (0.083 %) solution for nebulizatio n 06/16 completed Not Available Not Available Not Available azithromyci n 250 mg tablet 03/13 completed Not Available Not Available Not Available ibuprofen 800 mg tablet 06/16 completed Not Available Not Available Not Available ofloxacin 0.3 % eye drops active Not Available Not Available Not Available metoprolol succinate ER 50 mg tablet,exte nded release 24 hr 02/04 completed Not Available Not Available Not Available citalopram 10 mg tablet active Not Available Not Available Not Available Claritin 10 mg tablet Take 1 tablet every day by oral route. active Not Available Not Available No t Available prednisone 20 mg tablet 02/04 completed Not Available Not Available Not Available fluoxetine 10 mg tablet active Not Available Not Available Not Available penicillin V potassium 500 mg tablet 02/04 completed Not Available Not Available Not Available amlodipine 2.5 mg tablet active Not Available Not Available Not Available chlorthalid one 25 mg tablet TAKE 1 TABLET BY MOUTH EVERY DAY active Not Available Not Available No t Available amlodipine 5 mg tablet 02/04 completed Not Available Not Available Not Available oxycodone-a cetaminophe n 5 mg-325 mg tablet 02/04 completed Not Available Not Available Not Available amlodipine 10 mg tablet 06/16 completed Not Available Not Available Not Available hydrocortis one 1 % topical cream APPLY ON SKIN LESIONS TWICE DAILY FOR 2 WEEKS 06/16 completed Not Available Not Available Not Available erythromyci n 5 mg/gram (0.5 %) eye ointment 06/16 completed Not Available Not Available Not Available oseltamivir 75 mg capsule TAKE 1 CAPSULE BY MOUTH EVERY 12 HOURS FOR 5 DAYS 06/27 completed Not Available Not Available Not Available triamcinolo ne acetonide 0.1 % topical ointment 04/08 completed Not Available Not Available Not Available fluoxetine 10 mg capsule Take 1 capsule every day by oral route. active Not Available Not Available No t Available montelukast 10 mg tablet TAKE 1 TABLET BY MOUTH EVERY DAY IN THE EVENING active Not Available Not Available No t Available clindamycin 2 % vaginal cream INSERT 1 APPLICATO RFUL VAGINALLY DAILY X 7 DAYS active Not Available Not Available No t Available lisinopril 5 mg tablet 03/13 completed Not Available Not Available Not Available hydrochloro thiazide 25 mg tablet active Not Available Not Available No t Available mupirocin 2 % topical ointment 02/04 completed Not Available Not Available Not Available metoprolol succinate ER 25 mg tablet,exte nded release 24 hr 02/04 completed Not Available Not Available Not Available medroxyprog esterone 150 mg/mL intramuscul ar suspension Inject 1 mL every 3 months by intramusc ular route as directed for 360 days. 02/04 completed Not Available Not Available Not Available amoxicillin 875 mg-potassiu m clavulanate 125 mg tablet 06/16 completed Not Available Not Available Not Available azithromyci n 500 mg tablet Take 2 tablets every day by oral route for 1 day. 2012 active 3 day Z pack Not Available Not Available Not Available Linda 0.35 mg tablet TAKE 1 TABLET BY MOUTH EVERY DAY 06/16 completed Not Available Not Available Not Available 10/02 () 1 mg-20 mcg tablet active Not Available Not Available Not Available 10/02 () 1 mg-20 mcg (21)/75 mg (7) tablet active Not Available Not Available N ot Available () 1.5 mg-30 mcg (21)/75 mg (7) tablet Take 1 tablet every day by oral route. 2012 active Not Available Not Available Not Avai lable nitrofurant oin monohydrate /macrocryst als 100 mg capsule Take 1 capsule twice a day by oral route for 7 days. 02/04 completed Not Available Not Available Not Available Flovent HFA 110 mcg/actuati on aerosol inhaler active Not Available Not Available Not Available () active Not Available Not Available Not Available ProAir HFA 90 mcg/actuati on aerosol inhaler INHALE 2 PUFFS Q 4-6 HOURS NEEDED active Not Available Not Available No t Available Symbicort 160 mcg-4.5 mcg/actuati on HFA aerosol inhaler INHALE 2 PUFFS BY MOUTH TWICE A DAY active Not Available Not Available No t Available Mucus Relief ER 600 mg tablet, extended release TAKE 1 TABLET BY MOUTH TWICE A DAY 02/04 completed Not Available Not Available Not Available Alyacen 1/35 (28) 1 mg-35 mcg tablet TAKE 1 TABLET BY MOUTH EVERY DAY active Not Available Not Available No t Available fluticasone 113 mcg-salmete rol 14 mcg/actuati on breath activated powdr active Not Available Not Available Not Available Vitals Date Recorded Body height Heart rate Body mass index (BMI) Body weight Systolic blood pressure Diastolic blood pressure Provider Name and Address Organization Details Last Updated DateTime 8 154.94 cm 85 /min 31.5 kg/m2 04480.4 9 g 150 mm[Hg] 85 mm[Hg] Mikayla Lombardi in [facility], 8 08:41:11 Date Recorded Body height Body mass index (BMI) Body weight Heart rate Systolic blood pressure Diastolic blood pressure Provider Name and Address Organization Details Last Updated DateTime 8 154.94 cm 32.3 kg/m2 09300.3 g 89 /min 166 mm[Hg] 100 mm[Hg] Jaelyn Lombardi in [facility], 8 14:34:32 Date Recorded Body weight Body mass index (BMI) Body height Heart rate Systolic blood pressure Diastolic blood pressure Provider Name and Address Organization Details Last Updated DateTime 9 65325.5 2 g 32.5 kg/m2 153.04 cm 88 /min 166 mm[Hg] 99 mm[Hg] Jaelyn Lombardi in [facility], 9 15:21:20 Date Recorded Body height Body mass index (BMI) Body weight Heart rate Systolic blood pressure Diastolic blood pressure Provider Name and Address Organization Details Last Updated DateTime 9 153.04 cm 32.3 kg/m2 00256.9 3 g 95 /min 148 mm[Hg] 102 mm[Hg] Mikayla Lombardi in [facility], 9 15:29:12 Date Recorded Body height Body mass index (BMI) Body weight Body temperature Heart rate Systolic blood pressure Diastolic blood pressure Provider Name and Address Organization Details Last Updated DateTime 0 153.04 cm 34.7 kg/m2 77557.4 7 g 97.7 [degF] 86 /min 157 mm[Hg] 95 mm[Hg] Yanni Castro [place] - [facility], 0 15:07:36 Social History Question Answer Notes LastModified by Organizat ion Details LastModified Time Tobacco Smoking Status Never Smoker Not Available [facility] 07/16/2020 03:19:42 What Is Your Level Of Alcohol Consumption? Occasional [id number] Information not available 07/16/2020 What Is Your Level Of Caffeine Consumption? Heavy [id number] Information not available 07/16/2020 What Type Of Diet Are You Following? REGULAR [id number] Information not available 07/16/2020 Which Illicit Or Recreational Drugs Have You Used? No [id number] Information not available 07/16/2020 Do You Reside In Or Have You Traveled To An Area Where Ebola Virus Transmission Is Active? No [id number] Information not available 07/16/2020 Do You Or Have You Ever Used E-cigarettes Or Vape? 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 30 Information not available 07/02/2016 High Number Of Sexual Partners No Information not available 03/13/2016 To Which Gender Do You Self-identify? Female Information not available 03/13/2016 Marital Status Single Informatio n not available 08/02/2013 What Was The Date Of Your Most Recent Tobacco Screening? 06/27/2020 [id number] Information not available 07/16/2020 Are You Sexually Active? Yes Not Really Been Over A Month [id number] Information not available 07/16/2020 Do You Or Have You Ever Used Smokeless Tobacco? Never Used Smokeless Tobacco [id number] Information not available 07/16/2020 How Much Tobacco Do You Smoke? No [id number] Information not available 07/16/2020 General Stress Level Low mgagne6 Information not available 06/27/2020 How Many Years Have You Smoked Tobacco? 0 [id number] Information not available 07/16/2020 Have You Recently (within The Last 12 Weeks, Or During A Current ) Traveled To Or Lived In A Zika-affected Area? No Information not available 03/13/2016 Sex: Unknown Functional Status Question Answer Note LastModified by Organization D etails LastModified Time What is your exercise level? Moderate [id number] Information not available 07/16/2020 Mental Status None recorded. Family History Nothing Reported Notes:adopted Medical History Condition Response Anesthesia complications N High Blood Pressure Y Candidate for MyRisk panel N Autoimmune Condition N Thyroid Problems N Kidney or Bladder Problems N GI Problems N Lung Disease N Depression N Defects or Inherited Disease N History of Ovarian Cancer N Anemia N History of Breast Cancer N SUZY exposure N BRCA testing in past N Osteopenia N Psychiatric Illness N Anxiety Disorder Y Diabetes N Arthritis N Headaches or Migraines N Infertility N Asthma Y History of Cancer N Endometriosis N Hepatitis N Heart Disease N Hypertension Y Osteoporosis N Gynecological History Statement/Question Response Dysmenorrhea N Flow Light Date of LMP 05/28/2020 Menses Monthly N Colposcopy 02/11/2015 Current Control Method BCPs Age at First Child 1 Obstetrics History GPAL:G 0 P 0 0 0 0 Immunizations Vaccine Type Date Status Note Provider Nam e and Address Organization Details Recorded Time HPV, unspecified formulation 09/13/2010 completed Jaelyn meadows MA - [facility], 08/02/2013 11:07:59 Past Encounters Encounter ID Performer Location Encounter Start Date Encounter Closed Date Diagnosis/Indication Diagnosis SNOMED-CT Code Diagnosis ICD10 Code Diagnosis Note [id number] MD BRITTANIE Ashton MD [address] [place] [address], [address] [place] [address] 08/02/2013 10:51:03 08/02/2013 12:08:11 Specialized medical examination [id number] Venereal d isease screening 121825820 Menorrhagia [id number] Jaelyn ROSE MD [address] [facility], [address] [place] [address] 08/24/2013 15:04:02 08/25/2013 10:14:35 Chlamydial infection 694125000 Cervical intraepithelial neoplasia grade 1 718750194 [id number] Jaelyn ROSE MD [address] [facility],[address] [place] [address] 10/02/2014 14:41:19 10/02/2014 15:40:00 Specialized medical examination 57022862 Venereal d isease screening [id number] Mikayla Justinmoise BRITTANIE ROSE MD [address] [facility],[place] [address] 10/08/2014 12:51:35 10/08/2014 15:19:15 Cytologic finding [id number] BRITTANIE ROSE MD [address] [facility] [place] [address] 02/11/2015 09:03:29 02/11/2015 10:15:14 Cytologic finding 358381405 Venereal d isease screening [id number] Leonard ROSE MD [address] [facility] [address] 02/13/2015 10:38:20 02/13/2015 11:46:17 Dysmenorrhea [id number] Jaelyn ROSE MD [address] [facility] [address] 05/08/2015 09:57:07 05/08/2015 11:24:16 Dysmenorrhea [id number] MD BRITTANIE Ashton MD [address] [facility] [address] 08/02/2015 07:58:16 08/02/2015 09:42:16 Dysmenorrhea 757351424 N94.4 [id number] MD BRITTANIE Ashton MD [address] [facility] [address] 10/02/2015 08:00:47 10/02/2015 11:19:13 Dysmenorrhea 809019224 N94.4 Specialize d medical examination 87669770 Z01.419 Venereal d isease screening 554952869 Z11.3 [id number] MD BRITTANIE Ashton MD [address] [place] [address] 10/25/2015 13:28:37 10/25/2015 16:03:47 Dysmenorrhea 407180231 N94.4 [id number] MD BRITTANIE Ashton MD [address] [place], [place] [address] [address] 01/17/2016 13:10:13 01/20/2016 08:10:20 Cervical intraepithelial neoplasia grade 1 786411445 N87.0 Hypertensive disorder 38 184506 I10 Dysmenorrhea 514647055 N 94.4 [id number] MD BRITTANIE Ashton MD [address] [place] [address] [address] 03/13/2016 08:19:46 03/13/2016 13:01:41 Cytologic finding [id number] R87.612 [id number] MD BRITTANIE Ashton MD [address] [place] [address], [place] [address] 04/08/2016 10:29:52 04/08/2016 11:56:34 Dysmenorrhea 900200830 N94.4 [id number] MD BRITTANIE Ashton MD [address] [place] [address] [address] 07/02/2016 09:19:56 07/02/2016 10:29:36 Dysmenorrhea 916388000 N94.4 [id number] MD BRITTANIE Ashton MD [address] [place] [address] [address] 09/21/2016 09:58:44 09/21/2016 11:21:29 Acute lower urinary tract infection 581025909 R30.0 Dysfunctio nal uterine bleeding 66329558 N93.8 [id number] MD BRITTANIE Ashton MD [address] [place] [address] [address] 09/29/2016 13:36:30 09/29/2016 15:36:27 Specialized medical examination 91132767 Z01.419 Venereal d isease screening 526706599 Z11.3 Dysmenorrhea 293376397 N 94.4 [id number] MD BRITTANIE Ashton MD [address] [place] [address],[address] [place] [address] 12/16/2016 11:29:49 12/16/2016 12:07:16 Dysmenorrhea 963985057 N94.4 Hypertensive disorder 38 618758 I10 Menorrhagia 179281924 N9 2.0 [id number] MD BRITTANIE Ashton MD [address] [place] [address],[address] [place] [address] 02/04/2018 08:27:32 02/04/2018 13:05:35 Specialized medical examination 71511403 Z01.419 Venereal d isease screening 479594626 Z11.3 Dysmenorrhea 475400942 N 94.4 History of dysplasia of cervix 324464292 Z87.410 [id number] MD BRITTANIE Ashton MD [address] [place] [address],[place] [address] 04/08/2018 14:16:55 04/11/2018 08:29:18 Acute lower urinary tract infection 485527160 R30.0 Venereal d isease screening 987306091 Z11.3 [id number] MD BRITTANIE Ashton MD [address] [place] [address],[place] [address] 06/16/2019 15:09:50 06/16/2019 15:43:25 [id number] MD BRITTANIE Ashton MD [address] [place] [address],[place] [address] 06/23/2019 15:01:14 06/23/2019 16:02:26 Specialized medical examination 97240305 Z01.419 Venereal d isease screening 182976395 Z11.3 Hypertensive disorder 38 727352 I10 [id number] MD BRITTANIE Ashton MD [address] [place] [address],[place] [address] 06/27/2020 14:56:43 06/27/2020 15:57:46 Specialized medical examination 01613612 Z01.419 Venereal d isease screening 440811232 Z11.3 Health Concerns Section Related Observation LastModified by Organization Detai ls LastModified Time None Recorded Concern Status LastModified by Organization Details LastModified Time None Recorded Advance Directives Directive None Recorded Payers Encounter Date Sequence Insurance Name Policy Number Policy Smith Covered Member ID Smith Member ID Guarantor Name 02/04/2018 1 [place] [id number] Martinez Mooreci [id number] Mikayla Mooreci 04/08/2018 1 [place] [id number] Martinez Fucci [id number] Mikayla Fucci 06/16/2019 1 [place] [id number] Martinez Fucci [id number] Mikayla Fucci 06/23/2019 1 [place] [id number] Martinez Fucci [id number] Mikayla Shepherd 06/27/2020 1 *SELF PAY* Ashish Shepherd Notes Date Note Type Note Provider Name and Address Organization Details Recorded Time 02/04/2018 text/html She is here for annual exam, is doing well. She was switched to a different antihypertensive recently, her BP today is 150/85. She is taking the Linda OCP due to her hypertension. Brittanie Rose MD [address] [facility],[address], [place], [address], [place] - [facility], 02/04/2018 09:10:14 04/08/2018 text/html She is here priscilla use she got back together with her old partner 2 days ago and the next morning, yesterday, she noted a very severe pain at the top of her vulva. She notes that she also has some dysuria since then. Today the pain is moderately improved and definitely not worse. They did have oral sex. Brittanie Rose MD [address] [facility],[address], [place], [address], [place] - [facility], 04/08/2018 16:04:38 06/23/2019 text/html She is here for annual exam, she broke up with her usp boyfriend a month ago, and he already has a new partner. She has not bee nsexually active in the 4 weeks. She stopped her Linda a year ago, they were not using control and she didn't get . She is not sure if she has infertility or not. BP is 148/102 today. She went to urgent care for pink eye last Wednesday, her diastolic was 115. She used to take amlodipine 10 mg tabs until March, but she stopped it because it made her foot numb. Note from 2018: She is here for annual exam, is doing well. She was switched to a different antihypertensive recently, her BP today is 150/85. She is taking the Linda OCP due to her hypertension. She has a history of LSIL, had paps in 2014 ASCUS, 2016 LSIL, 2017 negative, and colpo LSIL in 03/2016. She has a known cardiac murmur, she had a breast reduction in September and so she had to see a director talent acquisition pre op, They said the murmur was fine. She has had the same partner for 6 years, is considering marriage. Brittanie Rose MD [address] [facility],[address], [place], [address], [place] - [facility], 06/23/2019 15:59:21 06/27/2020 text/html She is here for annual exam, had stopped her antihypertensive last year.She was started on an antihypertensive by her PCP a few months ago, she notes, and her BP was higher than it is today, at that time. She as not been back there to recheck, though. BP 157/95 today.Menses are regular. 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 She has not had another partner since then. ___ Note from 2019: She is here for annual exam, she broke up with her intermodal dispatcher boyfriend a month ago, and he already has a new partner. She has not bee nsexually active in the 4 weeks. She stopped her Linda a year ago, they were not using control and she didn't get . She is not sure if she has infertility or not. BP is 148/102 today. She went to urgent care for pink eye last Wednesday, her diastolic was 115. She used to take amlodipine 10 mg tabs until March, but she stopped it because it made her foot numb. Brittanie Rose MD [address] [facility],[address], [place], [address], [place] - [facility], 06/27/2020 15:43:54 OBGyn Episode No OBEpisode recorded.
--- OUTSIDE RECORDS SUMMARY | 2024-11-01 15:26 | XMS_ITS | Encounter Summary ---
Author Organization [facility], Address [address] [place] [address] Phone Care Team Providers Care Financial Services Auditor Name Role Phone Dania Yen PA-C Primary Care Provider + Encounter Details Date Type Department Care Team (Late st Contact Info) Description 10/16/2021 Documentation Only [facility], [address] [place] [place] [address] Nahed Collazo MD [address] [place] [address] Social History Tobacco Use Types Packs/Day Years Used Date Smoking Tobacco: Never Assessed Comments Unknown Sex and Gender Information Value Date Recorded Sex Assigned at Female 04/12/2023 10:23 AM EDT Legal Sex Female 3:39 PM EST Gender Identity Female 04/12/2023 10:23 AM EDT Sexual Orientation Straight 04/12/2023 10 :23 AM EDT documented as of this encounter Plan of Treatment Not on file documented as of this encounter Visit Diagnoses Not on filedocumented in this encounter Care Teams Financial Services Auditor Relationship Specialty Start Date End Date Dania Yen PA-C [address] [place] [address] PCP - General Physician Computer Forensic Examiner 10/16/21 documented as of this encounter
--- OUTSIDE RECORDS SUMMARY | 2024-11-01 15:26 | XMS_ITS | Clinical Summary ---
Author Organization Patient Business Ser [facility] Address [address] [place] [address] Care Team Providers Care Construction Project Coordinator Name Role Phone Kari Abbicarmelina Primary Care Provider [phone] Allergies Active Allergy Reactions Criticality Noted Date Comments Hydrochlorothiazide Rash Medium 05/26/2021 Sulfa (Sulfonamide Antibiotics) Rash Medium 05/14 Sulfamethoxazole-Trimethoprim Rash Medium 2019 Medications budesonide-form oteroL (SYMBICORT) 160-4.5 mcg/actuation inhaler Inhale 2 Puffs into the lungs 2 times daily. Active albuterol HFA (PROAIR HFA ; PROVENTIL HFA ; VENTOLIN HFA) 90 mcg/actuation inhaler Inhale 2 Puffs into the lungs every 4 hours as needed. Active chlorthalidone (HYGROTON) 25 mg tablet Take 1 Tab by mouth daily. 12/05/2020 Active cyanocobalamin (VITAMIN B-12) 1,000 mcg tablet Take 1 Tablet by mouth daily. 03/03/2024 Active escitalopram (LEXAPRO) 20 mg tablet 04/30/2024 Active fluticasone furoate (Arnuity Ellipta) 200 mcg/actuation blister with device inhaler INHALE 1 PUFF EVERY DAY DIRECTED. 03/09/2024 Active fluticasone propionate (FLONASE) 50 mcg/actuation nasal spray 2 Sprays by Nasal route daily for 30 days. 12/05/2020 Active losartan (COZAAR) 50 mg tablet 04/27/2024 Active nystatin-triamc inolone (MYCOLOG II) ointment Apply a thin layer to affected area twice daily x 2 weeks, then daily. 05/03/2024 Active ondansetron (ZOFRAN) 4 mg tablet TAKE 1 TABLET BY MOUTH EVERY 8 HOURS NEEDED FOR NAUSEA AND VOMITING. 03/09/2024 Active Active Problems Problem Noted Date Diagnosed Date Hypertension 10/25/2024 Asthma, moderate persistent 10/25/2024 Vulvar itching 06/24/2021 Overview (10/25/2024): Last Assessment & Plan: I counseled Mikayla that both vitiligo and lichen sclerosus can cause itching. It is not 100% clear from her exam which she has in the labial area. She may have both. I suspect the interlabial sulci may be lichen sclerosus. I explained the importance of knowing the difference as LS is more often associated with increased risk of cancer and need for life long treatment with a topical steroid at some interval. I suggested a biopsy to help distinguish between the two, but explained that now all biopsies are diagnostic. She voiced understanding and agreed. Vulvar Biopsy Reason for biopsy: Encounter Diagnosis Name Primary? ? Vulvar itching Yes The patient was consented for vulvar biopsy. Risks reviewed including bleeding, infection, and hematoma formation. She was placed in dorsal lithotomy position. The area of planned biopsy in the left interlabial sulcus was prepped with betadine and infiltrated with a total of 1 cc of 0.5% Marcaine. A 3 mm punch biopsy was taken and harvested with forceps and Iris scissors. Hemostasis was obtained with pressure and silver nitrate. Zinc oxide was applied. The patient tolerated the procedure well. Verbal and written instructions were provided. JESSICA SCHWARTZ MD Immunizations Name Administration Dates Next Due DTaP (Infanrix) 6wks to less than 7yo ,08/25/1995,1994,07/03,1994 [id number] (Pentacel) 2mo to less than 5yo 06/04/1995,1994,1994,05/05 HPV, Quadrivalent 11/26/2008,07/24/2008,04/26/20 08 Hepatitis B Pediatric (Enger ix B; Recombivax HB) to less than 20 yo 1994,1994,1994 IPV Inactivated polio (Ipol) 6wks and older 04/08/1999,08/25/1995,1994,05/05 MMR, measles mumps and rubel la Live (Priorix; M-M-R II) 12mo and older 04/08/1999,06/04/1995 Measles 03/03/2017 Meningococcal MCV4P 05/06/2007 Mumps 03/03/2017 Rubella 03/03/2017 Tdap Tetanus diptheria acell ular pertussis (Boostrix; Adacel) 7yo and older 04/29/2009 Varicella live (Varivax) 12m o and older 03/03/2017,04/29/2009,03/07/1995 Surgical History Surgery Date Site/Laterality Comments CARDIAC SURGERY PROCEDURE: HISTORICAL HEART SURGERY(ASD,VSD,VALVES); COMMENT: VSD 1998 BREAST REDUCTION 09/2017 PROCEDURE: MA BREAST REDUCTION Medical History Medical History Date Comments Asthma, moderate persistent DX:A sthma, moderate persistent Environmental allergies 10/18/2019 DX:Envir onmental allergies Hypertension DX:Hypertension S/P VSD repair DX:S/P VSD repai r Vitiligo DX:Vitiligo Family History Medical History Relation Name Comments Colon polyps Father Diabetes Mother Colon cancer Neg Hx Ovarian cancer Neg Hx Pancreatic cancer Neg Hx Uterine cancer Neg Hx Relation Name Status Comments Father Alive Mother Alive Social History Tobacco Use Types Packs/Day Years Used Date Smoking Tobacco: Never Smokeless Tobacco: Never Alcohol Use Standard Drinks/Week Comments Yes 0 (1 standard drink = 0.6 oz pur e alcohol) Comments Unknown Sex and Gender Information Value Date Recorded Sex Assigned at Not on file Legal Sex Female 12:56 PM EDT Gender Identity Not on file Sexual Orientation Not on file Obstetrics History Last Filed Vital Signs Vital Sign Reading Time Taken Comments Blood Pressure 110/76 05/03/2024 9:08 AM EDT Pulse 83 05/03/2024 9:08 AM EDT Temperature - - Respiratory Rate - - Oxygen Saturation - - Inhaled Oxygen Concentration - - Weight 73.9 kg (163 lb) 05/03/2024 9:08 AM EDT Height 152.4 cm (5') 05/03/2024 9:08 AM EDT Body Mass Index 31.83 05/03/2024 9:08 AM EDT Plan of Treatment Upcoming Encounters Date Type Department Care Team (Late st Contact Info) Description 11/07/2024 11:00 AM EST Office Visit Obstetrics and Gynecology - [address] [place] [place] [id number] Fracisco Tang CNM [address] [place] [address] Health Maintenance Due Date Last Done Comments Pneumococcal Vaccine: Pediatrics (0 to 5 Years) and At-Risk Patients (6 to 64 Years) (1 of 2 - PCV) 2013 DTaP,Tdap,and Td Vaccines (7 - Td or Tdap) 04/29/2019 04/29/2009, 02/05/1999, 08/25/1995, Additional history exists Depression Screening 12/05/2020 Hepatitis C Screening 12/05/2020 Social Influencers of Health Screening 12/05/2020 Hypertension/CHF/CAD Annual BMP Blood Test 08/27/2022 12/05/2020 COVID-19 Vaccine ( season) 2024 Influenza Vaccine (#1) 2024 Cholesterol Screening (Lipid Panel) 12/05/2025 12/05/2020 Cervical Cancer Screening: HPV 05/03/2029 05/03/2024 Hepatitis B Vaccines Completed 1994, 1994, 1994 HIB Vaccines Completed 06/04/1995, 08/14, 1994, Additional history exists IPV Vaccines Completed 04/08/1999, 08/13, 06/04/1995, Additional history exists MMR Vaccines Completed 04/08/1999, 06/04/1995 Meningococcal ACWY Vaccine Aged Out 05/06/2007 N o longer eligible based on patient's age to complete this topic HPV Vaccines Completed 11/26/2008, 07/14, 04/26/2008 Varicella Vaccines Completed 03/03/2017, 0 04/29/2009, 03/07/1995 HIV Screening Completed 12/05/2020 Hepatitis A Vaccines Aged Out No long er eligible based on patient's age to complete this topic Meningococcal B Vacine Aged Out No lo nger eligible based on patient's age to complete this topic RSV Immunization Patients Under 20 months Aged Out No longer eligible based on patient's age to complete this topic Procedures Procedure Name Priority Date/Time Associated Diagnosis Comments HPV Routine 05/03/2024 HIV SCREENING Routine 12/05/2020 ANNUAL BMP BLOOD TEST Routine 12/05/2020 LIPID PANEL Routine 12/05/2020 from Last 3 Months or Most Recently Relevant to Health Maintenance Results * Cervical Cancer Screening: HPV (05/03/2024) Pathologist [facility] Cervical Cancer Screening: HPV Negativie abstracted [facility] Provider HEALTH MAINTENANCE Final Result * Annual BMP Blood Test (12/05/2020) Pathologist [facility] Annual BMP Blood Test Abstracted [facility] Provider HEALTH MAINTENANCE Final Result * HIV Screening (12/05/2020) [facility] HIV Screening Abstracted [facility] Provider HEALTH MAINTENANCE Final Result * (ABNORMAL) Lipid panel (12/05/2020) [facility] LDL/HDL Ratio 4 0 - 4 Triglycerides 154(A) 0 - 150 mg/dL Cholesterol 177 0 - 200 mg/dL HDL 40 >=40 mg/dL LDL Cholesterol 107(A) 0 - 100 mg/dL Blood Venous blood specimen / Unknown [facility] Provider LAB BLOOD ORDERABLES Hilary l Result from Last 3 Months or Most Recently Relevant to Health Maintenance Care Teams Construction Project Coordinator Relationship Specialty Start Date End Date Mickey Pierce DO PCP - General Internal Medicine 01/23/22
--- OUTSIDE RECORDS SUMMARY | 2024-11-01 15:26 | XMS_ITS | Clinical Summary ---
Author Organization [facility] Address [address] [place] [address] Phone Care Team Providers Care Pad Extractor Tender Name Role Phone Dania Yen PA-C Primary Care Provider + Allergies Active Allergy Reactions Criticality Noted Date Comments Hydrochlorothiazide Rash Low 03/31/2023 Sulfa Antibiotics Rash Low 03/31/2023 Sulfamethoxazole-Trimethoprim Rash Low 2022 Medications Fluticasone-Sa lmeterol 113-14 MCG/ACT aerosol powder fluticasone 113 mcg-salmeterol 14 mcg/actuation breath activated powdr Active fluticasone HFA (Flovent HFA) 110 MCG/ACT inhaler Flovent HFA 110 mcg/actuation aerosol inhaler Active chlorthalidone 25 MG tablet chlorthalidone 25 mg tablet Active cyanocobalamin (VITAMIN B-12) 1000 MCG tablet Take 1,000 mcg by mouth 1 (one) time each day 3 Active Symbicort 160-4.5 MCG/ACT inhaler INHALE 2 PUFFS BY MOUTH TWICE A DAY DIRECTED 3 Active escitalopram (Lexapro) 20 MG tablet 3 Active hydrOXYzine (ATARAX) 25 MG tablet 3 Active Semaglutide-We ight Management (Wegovy) 1 MG/0.5ML solution auto-injector 3 Active losartan (Cozaar) 25 MG tablet Take 1 tablet (25 mg total) by mouth 1 (one) time each day 30 tablet 11 3 Active Active Problems Problem Noted Date Diagnosed Date Specialized medical examination 03/31/2023 Menorrhagia 03/31/2023 Hypertensive disorder 03/31/2023 Generalized vitiligo 03/31/2023 Dysmenorrhea 03/31/2023 Cytologic finding 03/31/2023 History of dysplasia of cervix 02/04/2018 Cervical intraepithelial neoplasia grade 1 09/13 Chlamydial infection 07/14/2013 Immunizations Name Administration Dates Next Due HPV, Unspecified 09/13/2010 Social History Tobacco Use Types Packs/Day Years Used Date Smoking Tobacco: Never Assessed Tobacco Cessation:Counseling Given: No Comments Unknown Sex and Gender Information Value Date Recorded Sex Assigned at Female 04/12/2023 10:23 AM EDT Legal Sex Female 3:39 PM EST Gender Identity Female 04/12/2023 10:23 AM EDT Sexual Orientation Straight 04/12/2023 10 :23 AM EDT Last Filed Vital Signs Vital Sign Reading Time Taken Comments Blood Pressure 148/70 07/21/2023 2:38 PM EST Pulse 80 07/21/2023 2:38 PM EST Temperature - - Respiratory Rate - - Oxygen Saturation 97% 07/21/2023 2:38 PM EST Inhaled Oxygen Concentration - - Weight 78.5 kg (173 lb) 07/21/2023 2:38 PM EST Height - - Body Mass Index - - Plan of Treatment Health Maintenance Due Date Last Done Comments Pneumococcal Vaccine: Pediat rics (0 to 5 Years) and At-Risk Patients (6 to 64 Years) (1 of 2 - PCV) 2000 Influenza Vaccine (#1) 2024 Hepatitis B Vaccine Completed 1994, 1994, 1994 [facility] [id number] [facility] Care Teams Pad Extractor Tender Relationship Specialty Start Date End Date Dania Yen PA-C [facility] [place] [address] PCP - General Physician Binding Dyer 10/16/21
--- NOTE | 2024-11-01 15:29 | A.OFFPC_ITS ---
Vital Signs 11/01/24 15:42 Height 5 ft Weight 161 lb BMI 31.4 BP 116/72 Blood Pressure Location Rt brachial Position Sitting Respiration 12 Pulse 83 Pulse Source Pulse Oximeter Pulse Oximetry (%) 99 Oxygen Delivery Method Room Air Intake Visit Reasons: annual Intake Note: Physical Packing Inspector Required: No Allergies sulfamethoxazole [From Bactrim] Allergy (Verified 11/01/24 15:30) Rash trimethoprim [From Bactrim] Allergy (Verified 11/01/24 15:30) Rash Medication List - Last Reconciled 11/01/24 by Dania Yen PA-C albuterol sulfate 90 mcg/actuation 2 puffs inhalation Q4-6H PRN cetirizine (Zyrtec) 10 mg PO DAILY PRN chlorthalidone 25 mg PO DAILY cyanocobalamin (vitamin B-12) 1,000 mcg PO DAILY escitalopram oxalate 20 mg PO DAILY fluticasone propion-salmeterol 250-50 mcg/dose 1 inh inhalation BID 30 days hydroxyzine HCl 25 mg PO BEDTIME PRN losartan 50 mg PO DAILY ondansetron HCl 4 mg PO Q8H PRN semaglutide (weight loss) (Wegovy) 2.4 mg (0.75 mL) subcut QWEEK Tobacco use date assessed: 11/01/24 HPI annual HPI Details Patient is a 29-year-old female with a significant past medical history of anxiety, depression, hypertension, asthma and obesity presenting today for a physical exam CV: Blood pressure today in the office is 116/72. She remains on losartan 50 mg, chlorthalidone 25 mg and potassium. General: She is frustrated with her weight and states that the wegovy was the only thing that was helpful. She tolerated this well. She is down 20 lbs with this. Psych: well controlled on lexapro. No SI/HI. She states that she is frustrated with her weight and that is the main reason for her anxiety and depression. She used to follow with a therapist but found this unhelpful. She reports sleeping well. Derm: Would like to see Dermatology for cystic acne. She would also like to see Allergy and immunology to be worked up for any food sensitivities. 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[facility] Medical History (Updated 11/01/24 @ 16:15 by Dania Yen PA-C) Right ovarian cyst Major depression in partial remission Generalized anxiety disorder with panic attacks Irregular menses Severe obesity (BMI 35.0-35.9 with comorbidity) Hypertension, benign Anxiety Depression Asthma GERD (gastroesophageal reflux disease) HTN (hypertension) Surgical History S/P VSD repair Family History Mother Diabetes Father HTN (hypertension) Social History (Updated 11/01/24 @ 15:46 by Damaris Andersen CMA) Housing: House Alcohol intake: current Patient Tobacco Use Status: Former Tobacco user Years Smoked: High school years e-Cigarette/Vaping Use: Never Used Second Hand Smoke Exposure: No Substance Use Type: Marijuana service: No Current occupational status: employed 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 1. Little interest or pleasure in doing things: not at all 2. Feeling down, depressed, or hopeless: several days 3. Trouble falling or staying asleep, or sleeping too much: several days 4. Feeling tired or having little energy: several days 5. Poor appetite or overeating: not at all 6. Feeling bad about yourself - or that you are a failure or have let yourself or your family down: not at all 7. Trouble concentrating on things, such as reading the newspaper or watching television: not at all 8. Moving or speaking so slowly that other people could have noticed. Or the opposite - being so fidgety or restless that you have been moving around a lot more than usual: not at all 9. Thoughts that you would be better off or of hurting yourself in some way: not at all Total score: 3 Depression Screening Interpretation: Positive Depression Screening Done: Yes 99319 - PHQ-9 Billing: Yes Source: Developed by Drs. Bhavesh Sandhu, Andree Foreman, Sj Joshi and colleagues, with an educational leeanne from [employer]. Thrive Questionnaire Date Thrive assessed: 10/29/24 I am a: Patient What is your living situation today?: I have a steady place to live Within the past 12 months, did the food you bought not last and you didn't have the money to get more?: Never true Within the past 12 months, did you worry whether your food would run out before you got money to buy more?: Never true Do you have trouble paying for medicines?: No Do you have trouble getting transportation to medical appointments?: No Do you have trouble paying your heating and electricity bill?: No Do you have trouble taking care of your child, family member or friend?: No Do you have trouble with day-to-day activities such as bathing, preparing meals, shopping, managing finances, etc.?: No Are you currently unemployed and looking for a job?: No Are you interested in more education?: No Please select the resources that you would like help with: None Currently or been in a relationship where the following occur: No concerns reported THRIVE Score: 0 AUDIT C Alcohol Use Questionnaire (AUDIT-C) 1. How often do you have a drink containing alcohol?: 2-3 times a week 2. How many drinks containing alcohol do you have on a typical day when you are drinking?: 3 or 4 3. How often do you have six or more drinks on one occasion?: Less than monthly Total Score: 5 POLY-7 AMB Questionnaire POLY-7 Date POLY - 7 assessed: 11/01/24 Feeling nervous, anxious, or on edge: 1 = Several days Not being able to stop or control worryin = Several days Worrying too much about different things: 1 = Several days Trouble relaxin = Not at all Being so restless that it is hard to sit still: 0 = Not at all Becoming easily annoyed or irritable: 1 = Several days Feeling afraid as if something awful might happen: 1 = Several days Total POLY-7 score (0-4 normal; 5-9 mild; 10-14 moderate; 15-21 severe): 5 Source: Developed by Drs. Bhavesh Sandhu, Andree Foreman, Sj Joshi and colleagues, with an educational leeanne from [employer] POLY-7 Assessment Billing POLY-7 Assessment Tool: POLY-7 Assessment 16298 Physical exam (Primary Care) Vital Signs: Last Vital Signs Pulse 83 11/01/24 15:42 Resp 12 11/01/24 15:42 BP 116/72 11/01/24 15:42 Pulse Ox 99 11/01/24 15:42 Oxygen Delivery Method Room Air 11/01/24 15:42 BMI result Body Mass Index 31.4 Tobacco/Smoking Status: Tobacco use Status Tobacco use date assessed 11/01/24 11/01/24 15:47 Patient Tobacco Use Status Former Tobacco user 11/01/24 15:46 e-Cigarette/Vaping Use Never Used 11/01/24 15:46 PHQ-9: PHQ-9 Score PHQ-9: Total score 3 11/01/24 15:47 Depression Screening Interpretation: Positive Thrive Assessment: Date of Thrive Assessment Date Thrive assessed 10/29/24 11/01/24 15:32 Currently or been in a relationship where the following occur: No concerns reported Const Orientation/consciousness: patient oriented x3 HENMT Ears: hearing grossly normal bilaterally and TM's normal bilaterally General nose exam: No nasal polyps present Face and sinus: Yes sinuses nontender Mouth: Normal oral and palatal mucosa present Eyes Pupils: Equal, round and reactive pupils present EOM: EOMs intact bilaterally Neck Neck: Yes full ROM and Yes no lymphadenopathy Thyroid: Thyroid normal Chest Chest palpation & inspection: normal inspection of the chest Resp Auscultation: clear to auscultation bilaterally Cardio Rate: regular rate Rhythm: regular rhythm Heart sounds: S1 normal heart sound present and S2 normal heart sound present Peripheral pulses: Peripheral pulses 2+ throughout GI Other: Soft, nontender Auscultation: normal bowel sounds Rectal Exam - Female: deferred General: Yes no CVA tenderness Back/Spine/Pelvis Other: Nontender Back: no CVA tenderness Skin General skin exam: no rashes or lesions noted Neuro General: patient oriented x3, gait normal, CN's II-XI intact bilaterally and deep tendon reflexes 2+ bilaterally Cranial nerves: Yes Equal, round and reactive pupils present Motor exam (neuro): 5/5 motor strength present throughout Sensory Exam: double simultaneous stimulation for sensation normal Coordination: [id number] test normal and Romberg test negative Extrem General: Yes normal to inspection and Yes full ROM Psych Affect: normal affect Attitude: cooperative Thought process: Normal thought process present Thought content: Normal thought content present Insight: Good insight present (Psych) Judgement: Good judgement present (Psych) Coding Level of Care Code Est Pt Prev Care 18-39y(79289) Diagnoses Routine general medical examination at a health care facility Z00.00 Hypertension, benign I10 Obesity (BMI 30.0-34.9) E66.811 Recurrent major depressive disorder, in partial remission F33.41 Major depression recurrence: recurrent Additional Codes POLY-7 Assessment Billing - POLY-7 Assessment Tool: POLY-7 Assessment 70017 ([id number]) PHQ-9 - 89286 - PHQ-9 Billing: Yes ([id number]) Assessment & Plan Assessment & Plan (1) Routine general medical examination at a health care facility: Code(s): Z00.00 - Encounter for general adult medical examination without abnormal findings Plan: Health maintenance reviewed. Labs ordered. Continue current regimen. (2) Hypertension, benign: Code(s): I10 - Essential (primary) hypertension Category: Medical Plan: WNL. Continue current regimen. (3) Obesity (BMI 30.0-34.9): Code(s): E66.811 - Obesity, class 1 Category: Medical Plan: Encouraged her to continue with diet and exercise. We will continue Wegovy. (4) Major depression in partial remission: Code(s): F32.4 - Major depressive disorder, single episode, in partial remission Category: Medical Qualifiers: Major depression recurrence: recurrent Qualified Code(s): F33.41 - Major depressive disorder, recurrent, in partial remission Plan: Currently well-controlled. Orders: Orders Comprehensive [place]. Panel Fast Today Z00.00 - Encounter for general adult medical examination without abnormal findings Complete Blood Count Auto Diff Today Z00.00 - Encounter for general adult medical examination without abnormal findings TSH reflex Free T4 Today Z00.00 - Encounter for general adult medical examination without abnormal findings Lipid Panel Today Z00.00 - Encounter for general adult medical examination without abnormal findings Referrals Dermatology Referral L70.9 - Acne, unspecified Allergy & Immunology Referral T78.1XXA - Other adverse food reactions, not elsewhere classified, initial encounter Medications: New clindamycin phosphate 1% (Clindagel) 1 appl topical DAILY 75 mL 1RF Refilled chlorthalidone 25 mg PO DAILY 90 tabs 3RF losartan 50 mg PO DAILY 90 tabs 3RF escitalopram oxalate 20 mg PO DAILY 90 tabs 3RF semaglutide (weight loss) (Wegovy) 2.4 mg (0.75 mL) subcut QWEEK 3 mL 11RF
[2024-11-01 15:42] VITALS: BP 116/72; PULSE 83; RESP 12; O2SAT 99; BMI 31.4
== END 2024-11-01 16:20 | disposition home or self-care (01) ==
PROVIDERS: PCP Physician Assistant; Visit Provider Physician Assistant
DX: Z00.00 Encounter for general adult medical examination without abnormal findings (principal); E66.811 Obesity, class 1; Z68.30 Body mass index [BMI] 30.0-30.9, adult; F33.41 Major depressive disorder, recurrent, in partial remission; I10 Essential (primary) hypertension

== ENCOUNTER → 2024-11-01 15:24 | Outpatient (BNVA) | payer BC, SELFPAY | PROVIDERS: PCP Physician Assistant; Visit Provider Physician Assistant | DX: Z00.00 Encounter for general adult medical examination without abnormal findings (principal); I10 Essential (primary) hypertension; E66.811 Obesity, class 1; F33.41 Major depressive disorder, recurrent, in partial remission; L70.9 Acne, unspecified; T78.1XXA Other adverse food reactions, not elsewhere classified, initial encounter; Z79.899 Other long term (current) drug therapy | CPT/HCPCS: 96127 ==

== ENCOUNTER 2025-05-02 10:11 | Outpatient (REF) | payer BC, SELFPAY ==
[2025-05-02 14:42] LABS: MANUAL DIFF FLAG NO
[2025-05-02 14:48] LABS: Hematocrit 40.5 % (37.0-47.0); Hemoglobin 13.7 g/dl (12.0-16.0); Imm Gran Abs Auto 0.02 X10*3/uL (0.00-0.03); Imm Gran Pct Auto 0.2 % (0.0-0.4); Lymphocytes Absolute Auto 2.4 X10*3/uL (1.2-4.9); Mean Corpuscular HGB Conc 33.8 g/dl (31.0-35.0); Mean Corpuscular Hemoglobin 29.8 pg (27.0-33.0); Mean Corpuscular Volume 88.0 fL (80.0-98.0); NRBC Abs Auto 0.000 X10*3/uL (0.0-0.012); NRBC Pct Auto 0.0 /100WBC (0.0-0.2); Platelet Count 471 X10*3/uL (160-400); Red Blood Count 4.60 X10*6/uL (4.20-5.50); White Blood Count 9.8 X10*3/uL (4.8-10.8)
[2025-05-02 15:36] LABS: Folate 6.4 ng/mL (> or = 4.0); Vitamin B12 279 pg/mL (200-900)
[2025-05-02 15:42] LABS: Hemoglobin A1C 123.0911 umol/L; Total Hemoglobin (HGBA1C) 3696.0775 umol/L
[2025-05-02 16:06] LABS: Alanine Aminotransferase 15 U/L (0-31); Albumin Level 4.5 g/dL (3.5-5.0); Alkaline Phosphatase 64 U/L (39-117); Anion Gap 13 (12-20); Aspartate Amino Transferase 22 U/L (5-31); Blood Urea Nitrogen 13 mg/dL (9-16); Calcium 9.4 mg/dL (8.4-10.2); Carbon Dioxide 25 mmol/L (22-29); Chloride 103 mmol/L (96-108); Cholesterol 145 mg/dL (<200); Estimated Glomerular Filt Rate > 60; HDL Cholesterol 33 mg/dL (>40); Iron 113 mcg/dL (30-160); Magnesium 2.1 mg/dL (1.6-2.6); Percent Iron Saturation 38 % (15-50); Potassium 3.4 mmol/L (3.3-5.1); Sodium 138 mmol/L (135-145); Total Iron Binding Capacity 299 mcg/dL (228-428); Total Protein 7.1 g/dL (6.5-8.0); Triglycerides 169 mg/dL (<150); Unsaturated Iron Binding 186 ug/dL
[2025-05-02 16:24] LABS: Ferritin 66 ng/mL (10-122)
== END 2025-05-02 10:12 | disposition home or self-care (01) ==
LOC: HO.WFDLDS 10:11
PROVIDERS: PCP Physician Assistant; Visit Provider Physician Assistant
DX: R73.01 Impaired fasting glucose (principal); I10 Essential (primary) hypertension; F41.1 Generalized anxiety disorder; F41.0 Panic disorder [episodic paroxysmal anxiety]; R53.83 Other fatigue; E66.811 Obesity, class 1; B37.0 Candidal stomatitis; Z68.33 Body mass index [BMI] 33.0-33.9, adult; Z71.3 Dietary counseling and surveillance
CPT/HCPCS: 36415; 80053; 80061; 82607; 82728; 82746; 83036; 83540; 83735; 84443; 85025

== ENCOUNTER 2025-05-02 10:11 | Outpatient (AMB) | payer BC, SELFPAY ==
--- NOTE | 2025-05-02 10:23 | A.OFFPC_ITS ---
Vital Signs 05/02/25 10:24 Height 5 ft Weight 172 lb 2 oz BMI 33.6 BP 118/74 Blood Pressure Location Rt brachial Position Sitting Respiration 12 Pulse 78 Pulse Source Pulse Oximeter Pulse Oximetry (%) 98 Oxygen Delivery Method Room Air Intake Visit Reasons: FU MEDICATIONSS Intake Note: Medication follow up Farmworker Required: No Allergies sulfamethoxazole (From Bactrim) Allergy (Verified 05/02/25 10:23) Rash trimethoprim (From Bactrim) Allergy (Verified 05/02/25 10:23) Rash Medication List - Last Reconciled 05/02/25 by Dania Yen PA-C albuterol sulfate 90 mcg/actuation 2 puffs inhalation Q4-6H PRN cetirizine (Zyrtec) 10 mg PO DAILY PRN chlorthalidone 25 mg PO DAILY clindamycin phosphate 1% (Clindagel) 1 appl topical DAILY escitalopram oxalate 20 mg PO DAILY fluticasone propion-salmeterol 250-50 mcg/dose 1 inh inhalation BID 30 days hydroxyzine HCl 25 mg PO BEDTIME PRN losartan 50 mg PO DAILY ondansetron HCl 4 mg PO Q8H PRN semaglutide (weight loss) (Wegovy) 2.4 mg (0.75 mL) subcut QWEEK Tobacco use date assessed: 11/01/24 HPI FU MEDICATIONSS HPI Details Patient is a 30-year-old female with a significant past medical history of anxiety, depression, hypertension, asthma and obesity presenting today for a f/u. General: Has been feeling tired. States that her aura ring tells her that she sleeps well at night but she does not know why she feels tired by the middle of the day. She was also seen recently at urgent care and diagnosed with thrush. She has been using magic mouthwash for 6 days and feels like it is a bit better but not fully gone. CV: Blood pressure today in the office is 118/74. She remains on losartan 50 mg, chlorthalidone 25 mg and potassium. General: She is frustrated with her weight and continues on Wegovy. Tolerating this well. Wondering if a different medication might work better. Psych: well controlled on lexapro. No SI/HI. She states that she is frustrated with her weight and that is the main reason for her anxiety and depression. She used to follow with a therapist but found this unhelpful. She reports sleeping well. 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[facility] Medical History (Updated 05/02/25 @ 10:42 by Dania Yen PA-C) Right ovarian cyst Major depression in partial remission Generalized anxiety disorder with panic attacks Irregular menses Severe obesity (BMI 35.0-35.9 with comorbidity) Hypertension, benign Anxiety Depression Asthma GERD (gastroesophageal reflux disease) HTN (hypertension) Surgical History S/P VSD repair Family History Mother Diabetes Father HTN (hypertension) Social History (Updated 11/01/24 @ 15:46 by Damaris Andersen CMA) Housing: House Alcohol intake: current Patient Tobacco Use Status: Former Tobacco user Years Smoked: High school years e-Cigarette/Vaping Use: Never Used Second Hand Smoke Exposure: No Substance Use Type: Marijuana service: No Current occupational status: employed 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 Current occupational exposures/hazards: No Cognitive needs: No Hearing needs: No Vision needs: Yes (glasses) Questionnaire Thrive Questionnaire Date Thrive assessed: 10/29/24 I am a: Patient What is your living situation today?: I have a steady place to live Within the past 12 months, did the food you bought not last and you didn't have the money to get more?: Never true Within the past 12 months, did you worry whether your food would run out before you got money to buy more?: Never true Do you have trouble paying for medicines?: No Do you have trouble getting transportation to medical appointments?: No Do you have trouble paying your heating and electricity bill?: No Do you have trouble taking care of your child, family member or friend?: No Do you have trouble with day-to-day activities such as bathing, preparing meals, shopping, managing finances, etc.?: No Are you currently unemployed and looking for a job?: No Are you interested in more education?: No Please select the resources that you would like help with: None Currently or been in a relationship where the following occur: No concerns reported THRIVE Score: 0 POLY-7 AMB Questionnaire POLY-7 Date POLY - 7 assessed: 11/01/24 Source: Developed by Drs. Bhavesh Sandhu, Andree Foreman, Sj Joshi and colleagues, with an educational leeanne from [employer]. Physical exam (Primary Care) Tobacco/Smoking Status: Tobacco use Status Tobacco use date assessed 11/01/24 11/01/24 15:47 Patient Tobacco Use Status Former Tobacco user 11/01/24 15:46 e-Cigarette/Vaping Use Never Used 11/01/24 15:46 Thrive Assessment: Date of Thrive Assessment Date Thrive assessed 10/29/24 11/01/24 15:32 Currently or been in a relationship where the following occur: No concerns reported Const Orientation/consciousness: patient oriented x3 HENMT Ears: hearing grossly normal bilaterally Neck Thyroid: Thyroid normal Lymphatic: no lymphadenopathy noted Resp Auscultation: clear to auscultation bilaterally Cardio Rate: regular rate Rhythm: regular rhythm Heart sounds: S1 normal heart sound present and S2 normal heart sound present GI Inspection: Yes normal to inspection Palpation (GI): Soft to palpation and Other GI palpation findings present (nontender, no cva tenderness) Auscultation: normoactive bowel sounds Rectal Exam - Female: deferred Skin General skin exam: no rashes or lesions noted Neuro General: patient oriented x3, gait normal and no focal motor deficits Results Reviewed Results Reviewed: Laboratory Tests 04/27/24 04/27/24 11:43 Unknown WBC 10.4 RBC 4.54 Hgb 13.5 Hct 39.6 Plt Count 437 H Sodium 137 Potassium 3.5 Chloride 104 Carbon Dioxide 24 Anion Gap 13 BUN 16 Creatinine 0.84 Estimated GFR > 60 Fasting Glucose 85 Estimat Average Glucose 100 Hemoglobin A1c % 5.1 AST 14 ALT 13 Triglycerides 157 H Cholesterol 170 LDL Cholesterol, Calc 103 H HDL Cholesterol 36 L TSH 0.70 Coding Level of Care Code Est Pt Level 4 (84276) Complex EM visit Add On G2211 Diagnoses Hypertension, benign I10 Generalized anxiety disorder with panic attacks F41.1; F41.0 Recurrent major depressive disorder, in partial remission F33.41 Major depression recurrence: recurrent Obesity (BMI 30.0-34.9) E66.811 Fatigue R53.83 Thrush B37.0 Assessment & Plan Assessment & Plan (1) Hypertension, benign: Code(s): I10 - Essential (primary) hypertension Category: Medical Plan: WNL. Continue current regimen (2) Generalized anxiety disorder with panic attacks: Code(s): F41.1 - Generalized anxiety disorder; F41.0 - Panic disorder [episodic paroxysmal anxiety] Category: Medical Plan: We will lower the dose of the Lexapro and try adding Wellbutrin. Discussed risks and benefits and adverse effects of this medication. (3) Major depression in partial remission: Code(s): F32.4 - Major depressive disorder, single episode, in partial remission Category: Medical Qualifiers: Major depression recurrence: recurrent Qualified Code(s): F33.41 - Major depressive disorder, recurrent, in partial remission Plan: As above. She will let me know if she does not tolerate this change. (4) Obesity (BMI 30.0-34.9): Code(s): E66.811 - Obesity, class 1 Category: Medical Plan: Continue Wegovy. I am adding Wellbutrin. Encouraged her to reduce her carbohydrate and sugar intake and to increase her physical activity (5) Fatigue: Code(s): R53.83 - Other fatigue Category: Medical Plan: Labs ordered today. (6) Thrush: Code(s): B37.0 - Candidal stomatitis Plan: We will treat with Diflucan. Discussed risks and benefits and adverse effects of this medication. Orders: Orders Complete Blood Count Auto Diff Today E66.811 - Obesity, class 1, F33.41 - Major depressive disorder, recurrent, in partial remission, F41.0 - Panic disorder [e pisodic paroxysmal anxiety], F41.1 - Generalized anxiety disorder, I10 - Essential (primary) hypertension, R53.83 - Other fatigue Vitamin B12 and Folate Today E66.811 - Obesity, class 1, F33.41 - Major depressive disorder, recurrent, in partial remission, F41.0 - Panic disorder [episodic paroxysmal anxiety], F41.1 - Generalized anxiety disorder, I10 - Essential (primary) hypertension, R53.83 - Other fatigue Lipid Panel Today E66.811 - Obesity, class 1, F33.41 - Major depressive disorder, recurrent, in partial remission, F41.0 - Panic disorder [episodic paroxysmal anxiety], F41.1 - Generalized anxiety disorder, I10 - Essential (primary) hypertension, R53.83 - Other fatigue IRON PROFILE Today E66.811 - Obesity, class 1, F33.41 - Major depressive disorder, recurrent, in partial remission, F41.0 - Panic disorder [episodic paroxysmal anxiety], F41.1 - Generalized anxiety disorder, I10 - Essential (primary) hypertension, R53.83 - Other fatigue Ferritin Today E66.811 - Obesity, class 1, F33.41 - Major depressive disorder, recurrent, in partial remission, F41.0 - Panic disorder [episodic paroxysmal anxiety], F41.1 - Generalized anxiety disorder, I10 - Essential (primary) hypertension, R53.83 - Other fatigue Comprehensive Dinosaur. Panel Fast Today E66.811 - Obesity, class 1, F33.41 - Major depressive disorder, recurrent, in partial remission, F41.0 - Panic disorder [episodic paroxysmal anxiety], F41.1 - Generalized anxiety disorder, I10 - Essential (primary) hypertension, R53.83 - Other fatigue TSH reflex Free T4 Today E66.811 - Obesity, class 1, F33.41 - Major depressive disorder, recurrent, in partial remission, F41.0 - Panic disorder [episodic paroxysmal anxiety], F41.1 - Generalized anxiety disorder, I10 - Essential (primary) hypertension, R53.83 - Other fatigue Hemoglobin A1c Today E66.811 - Obesity, class 1, F33.41 - Major depressive disorder, recurrent, in partial remission, F41.0 - Panic disorder [episodic paroxysmal anxiety], F41.1 - Generalized anxiety disorder, I10 - Essential (primary) hypertension, R53.83 - Other fatigue, R73.01 - Impaired fasting glucose Magnesium Today E66.811 - Obesity, class 1, F33.41 - Major depressive disorder, recurrent, in partial remission, F41.0 - Panic disorder [episodic paroxysmal anxiety], F41.1 - Generalized anxiety disorder, I10 - Essential (primary) hypertension, R53.83 - Other fatigue Medications: New escitalopram oxalate (Lexapro) 10 mg PO DAILY 90 tabs 0RF fluconazole 150 mg PO DAILY 10 tabs 0RF 10 days bupropion HCl XL (Wellbutrin XL) 150 mg PO QAM 90 tabs 0RF Discontinued escitalopram oxalate Discontinued Reason: Doctor's Order 20 mg PO DAILY 90 tabs 3RF
[2025-05-02 10:24] VITALS: BP 118/74; PULSE 78; RESP 12; O2SAT 98; BMI 33.6
--- OUTSIDE RECORDS SUMMARY | 2025-05-02 11:21 | XMS_ITS | Clinical Summary ---
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 [address] [place] [address] Health Maintenance Due Date Last Done Comments Pneumococcal Vaccine: Pediatrics (0 to 5 Years) and At-Risk Patients (6 to 49 Years) (1 of 2 - PCV) 2013 DTaP,Tdap,and Td Vaccines (7 - Td or Tdap) 04/29/2019 04/29/2009, 02/05/1999, 08/25/1995, Additional history exists Hepatitis C Screening 12/05/2020 Social Influencers of Health Screening 12/05/2020 COVID-19 Vaccine ( season) 2024 Depression Screening 09/13/2024 Hypertension/CHF/CAD Annual BMP Blood Test 10/11/2024 10/11/2023, 12/05/2020 Influenza Vaccine (#1) 2025 Cholesterol Screening (Lipid Panel) 12/05/2025 12/05/2020 Cervical Cancer Screening: HPV 05/03/2029 05/03/2024 Hepatitis B Vaccines Completed 1994, 1994, 1994 HIB Vaccines Completed 06/04/1995, 08/14, 1994, Additional history exists IPV Vaccines Completed 04/08/1999, 08/13, 06/04/1995, Additional history exists MMR Vaccines Completed 04/08/1999, 06/04/1995 Meningococcal ACWY Vaccine Aged Out 05/06/2007 N o longer eligible based on patient's age to complete this topic HPV Vaccines Completed 09/13/2010, 11/11, 07/24/2008, Additional history exists Varicella Vaccines Completed 03/03/2017, 0 04/29/2009, 03/07/1995 HIV Screening Completed 12/05/2020 Hepatitis A Vaccines Aged Out No long er eligible based on patient's age to complete this topic Meningococcal B Vaccine Aged Out No l onger eligible based on patient's age to complete [...] * Cervical Cancer Screening: HPV (05/03/2024) Pathologist [facility] Cervical Cancer Screening: HPV Negativie abstracted [facility] Provider HEALTH MAINTENANCE Final Result * Annual BMP Blood Test (12/05/2020) Pathologist [facility] Annual BMP Blood Test Abstracted [facility] HEALTH MAINTENANCE Final Result * HIV Screening (12/05/2020) Pathologist [facility] HIV Screening Abstracted [facility] HEALTH MAINTENANCE Final Result * (ABNORMAL) Lipid panel (12/05/2020) [facility] LDL/HDL Ratio 4 0 - 4 Triglycerides 154(A) 0 - 150 mg/dL Cholesterol 177 0 - 200 mg/dL HDL 40 >=40 mg/dL LDL Cholesterol 107(A) 0 - 100 mg/dL Blood Venous blood specimen / Unknown [facility] LAB BLOOD ORDERABLES Hilary l Result from Last 3 Months or Most Recently Relevant to Health Maintenance Insurance [facility] Care Teams Urogynaecologist Relationship Specialty Start Date End Date Martinez Gerard MD [address] [place] [address] PCP - General Family Medicine 04/30/25
--- OUTSIDE RECORDS SUMMARY | 2025-05-02 11:21 | XMS_ITS | Encounter Summary ---
Author Organization [facility], Address [address] [place] [address] Phone Care Team Providers Care Mobile Homes Repairer Name Role Phone Dania Yen PA-C Primary Care Provider + Encounter Details Date Type Department Care Team (Late st Contact Info) Description 10/16/2021 Documentation Only [facility], [address] [place] [address] Nahed Collazo MD [address] [place] [address] Social History Tobacco Use Types Packs/Day Years [...] on filedocumented in this encounter Care Teams Mobile Homes Repairer Relationship Specialty Start Date End Date Dania Yen PA-C [address] [place] [address] PCP - General Physician Hat Liner 10/16/21 documented as of this encounter
== END 2025-05-02 10:52 | disposition home or self-care (01) ==
LOC: HO.HMCFM 10:12
PROVIDERS: PCP Physician Assistant; Visit Provider Physician Assistant
DX: I10 Essential (primary) hypertension (principal); F41.1 Generalized anxiety disorder; E66.811 Obesity, class 1; Z68.33 Body mass index [BMI] 33.0-33.9, adult; F41.0 Panic disorder [episodic paroxysmal anxiety]; F33.41 Major depressive disorder, recurrent, in partial remission; R53.83 Other fatigue; B37.0 Candidal stomatitis